=== PATIENT | male | born 1950 | race Caucasian/White ===

== ENCOUNTER 2020-04-02 21:27 | Inpatient (IN) | payer MEDICARE, OTHER ==
--- NOTE | 2020-04-02 21:45 | EDM.PDOC ---
ED HPI GENERAL MEDICAL PROBLEM - General Chief Complaint: General Stated Complaint: Hypernatremia Time Seen by Provider: 04/02/20 21:40 Source of Information: Reports: Patient, Old Records ([facility] chart/EMR), Other ([facility] EMR) History Limitations: Reports: Altered Mental Status - History of Present Illness INITIAL COMMENTS - FREE TEXT/NARRATIVE: The patient was brought to the emergency room via private automobile by his friend for evaluation of newly diagnosed progression of his hyponatremia. The patient was advised by [facility] to come to the emergency room [facility] for further treatment and evaluation. He is a somewhat poor historian secondary to his baseline confusion, however. The patient denies any chest pain/pressure, heart flutter, dizziness, orthostasis, orthopnea, diaphoresis, paresthesias, recent decreased exercise tolerance, or any other anginal-type symptoms. No recent history of abdominal pain, heartburn, nausea, diarrhea, melena, gross hematochezia, or any food intolerance, including fatty foods, etc.. He denies any gross hematuria, colic, or other UTI symptoms. The patient also denies any recent fever, cough, wheezing, dyspnea, etc.. No history of recent headaches, visual changes, diplopia, or other change in neurological status, although he has had problems with balance during the last few months, including mild progression of his confusion during the last few weeks with recent MRI of the brain as below. His last minor fall was a couple of days ago with no head injury, etc. at that time. He denies any pain or discomfort. Onset: Gradual, Other (As above) Severity: Moderate (Confusion and problems with balance) Improves with: Reports: None Worsens with: Reports: None Context: Reports: Other (As above). Denies: Sick Contact, Trauma Associated Symptoms: Reports: Confusion. Denies: Chest Pain, Cough, Diaphoresis, Fever/Chills, Headaches, Loss of Appetite, Malaise, Nausea/Vomiting, Rash, Shortness of Breath, Syncope, Weakness Treatments PIN WORKER: Reports: Other (see below) (None) - Related Data Allergies Allergy/AdvReac Type Severity Reaction Status Date / Time No Known Allergies Allergy Verified 06/29/18 09:17 Home Meds: Home Meds Lisinopril 40 mg PO DAILY 11/15/13 [History] amLODIPine [Norvasc] 5 mg PO DAILY 11/15/13 [History] Gabapentin [Neurontin] 600 mg PO BID@06/28/18 [History] Oxybutynin Chloride 5 mg PO DAILY 06/28/18 [History] hydroCHLOROthiazide [Hydrochlorothiazide] 12.5 mg PO DAILY 06/28/18 [History] metFORMIN HCl [Metformin HCl] 1,000 mg PO BID 06/28/18 [History] Cholecalciferol (Vitamin D3) [Vitamin D3] 2,000 unit PO DAILY 03/03/20 [History] Diclofenac Sodium 50 mg PO BID@03/03/20 [History] Dulaglutide [Trulicity] 1.5 mg PO Q7D 03/03/20 [History] Memantine [Namenda] 10 mg PO BID 03/03/20 [History] Non-Formulary Medication [NF Drug] 75 unit SUBCUT BEDTIME 03/03/20 [History] Acetaminophen 500 mg PO Q6HR PRN 04/02/20 [History] Aspirin 81 mg PO DAILY 04/02/20 [History] Fenofibrate,Micronized [Fenofibrate] 134 mg PO DAILY 04/02/20 [History] Antkvghz-Xaxabud-Anpa 149-Hyal [Glucosamine-Chondr Complex Tab] 1 each PO DAILY 04/02/20 [History] Insulin Regular, Human [NovoLIN R] 30 units SUBCUT WITHDINNER 04/02/20 [History] Insulin Regular, Human [NovoLIN R] 35 units SUBCUT ACBREAKFAST 04/02/20 [History] Meclizine [Antivert] 12.5 mg PO BID PRN 04/02/20 [History] Multivitamin [Multivitamins] 1 each PO DAILY 04/02/20 [History] Iron-3 Fatty Acids [Iron-3] 100 mg PO DAILY 04/02/20 [History] Omeprazole 40 mg PO DAILY 04/02/20 [History] Sennosides/Docusate Sodium [Senna-S] 1 each PO DAILY 04/02/20 [History] Turmeric Root Extract [Turmeric Curcumin] 500 mg PO DAILY 04/02/20 [History] Vitamin B Complex 1 each PO DAILY 04/02/20 [History] Zinc 50 mg PO DAILY 04/02/20 [History] Past Medical History HEENT History: Reports: Allergic Rhinitis, Hard of Hearing, Impaired Vision, Other (See Below). Denies: Cataract, Glaucoma, Macular Degeneration, Otitis Media, Retinal Detachment Other HEENT History: Bilateral presbycusis with current hearing aid therapy. Patient wears reading glasses. Cardiovascular History: Reports: High Cholesterol, Hypertension, Other (See Below). Denies: Afib, Aneurysm, Arrhythmia, Blood Clots/VTE/DVT, CAD, Cardiomyopathy, Heart Failure, Heart Murmur, SD, PVD, Syncope Other Cardiovascular History: Dyslipidemia. Respiratory History: Reports: Bronchitis, Recurrent, COPD, Intubation, Previous, Sleep Apnea, Other (See Below). Denies: Asthma, Intubation, Difficult, PE, Pneumonia, Recurrent, Pneumothorax, TB Other Respiratory History: Patient has been compliant with his CPAP. Gastrointestinal History: Reports: Colon Polyp, GERD. Denies: Celiac Disease, Cholelithiasis, Fecal Incontinence, GI Bleed, Hepatitis, Hiatal Hernia, Irritable Bowel Syndrome, Jaundice, Pancreatitis, PUD Genitourinary History: Reports: BPH, Chronic Renal Insuffiency, Diabetic Nephropathy, Prostate Disorder. Denies: Acute Renal Failure, Renal Calculus, STD, Urinary Incontinence, UTI, Recurrent Musculoskeletal History: Reports: Arthritis, Back Pain, Chronic, Gout, Neck Pain, Chronic, Osteoarthritis. Denies: Amputation, Fracture, RA, SLE Neurological History: Reports: Alzheimers Disease, Neuropathy, Diabetic, Neuropathy, Peripheral, Vertigo, Other (See Below). Denies: Cerebral Aneurysms, Concussion, CVA, Headaches, Chronic, Head Trauma, Migraines, MS, Parkinson's, Seizure, TIA Other Neuro History: Recurrent falls. Mild to moderate cerebral atrophy by MRI. 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 Psychiatric History: Reports: Dementia. Denies: Abuse, Victim of, ADD, ADHD, Addiction, Anxiety, Depression, Psych Hospitalization(s), PTSD, Suicide Attempt, Suicidal Ideation Endocrine/Metabolic History: Reports: Diabetes, Type II, Obesity/BMI 30+, Other (See Below). Denies: Diabetes, Type I, Diabetes Mellitus, Type 3c, Hypothyroidism, IDDM Other Endocrine/Metabolic History: Chronic hyponatremia. Hematologic History: Reports: None. Denies: Anemia, Blood Transfusion(s), Iron Deficiency Immunologic History: Reports: None. Denies: AIDS, HIV, SLE Oncologic (Cancer) History: Reports: None. Denies: Basal Cell Carcinoma, Bladder, Colon, Hodgkin's Lymphoma, Leukemia, Lymphoma, Malignant Melanoma, Non- Hodgkin's Lymphoma, Prostate, Squamous Cell Carcinoma Dermatologic History: Reports: None. Denies: Eczema, Psoriasis - Infectious Disease History Infectious Disease History: Reports: Chicken Pox, Measles, Mumps. Denies: C- Difficile, Meningitis, Mononucleosis, MRSA, Pertussis (Whooping Cough), Rhe umatic Fever, Rubella, Scarlet Fever, Shingles, TB, VRE - Past Surgical History Head Surgeries/Procedures: Reports: None HEENT Surgical History: Reports: None. Denies: Adenoidectomy, Cataract Surgery, Eye Surgery, Laser Surgery, LASIK, Myringotomy w Tube(s), Naso-Sinus Surgery, Oral Surgery, Tonsillectomy Cardiovascular Surgical History: Reports: None. Denies: Varicose Respiratory Surgical History: Denies: None, Thoracentesis GI Surgical History: Reports: Appendectomy, Colonoscopy, Polypectomy, Other (See Below). Denies: Cholecystectomy, EGD, Hernia, Abdominal, Hernia, Inguinal, Hernia Repair/Other Other GI Surgeries/Procedures: Appendectomy at age 1. Last colonoscopy on 06/29/2018 was normal with polypectomy at time of colonoscopy on 11/29/2014. Male Surgical History: Reports: Circumcision, Other (See Below). Denies: TURP-Transurethral Resection of Prostate, Vasectomy Other Male Surgeries/Procedures: Circumcision as an infant. Neurological Surgical History: Reports: None. Denies: C-Spine, Discectomy, Laminectomy, Lumbar Spine, Sacral Spine, Spinal Fusion, Thoracic Spine, Vertebroplasty Musculoskeletal Surgical History: Reports: None, Hip Replacement, Joint Replacement, Other (See Below). Denies: Arthroscopic Procedure, Carpal Tunnel, Ganglion Cyst, ORIF, Shoulder Surgery Other Musculoskeletal Surgeries/Procedures:: Right knee total knee arthroplasty in about 2009 with redo procedure on 11/12/2013 complicated by postoperative bleed and subsequent infection with right knee I&D and drain placement on 12/11/2013. Left hip TEP on 05/11/2016. Oncologic Surgical History: Reports: None Dermatological Surgical History: Reports: None - Past Imaging History Past Imaging History: Reports: MRA (MRA of the brain on 03/03/2020 with results as above.), MRI (MRI of the brain on 03/10/2020 and 01/02/2019. MRI of the left hip on 12/01/2015 and the right hip on 01/13/2011.) Social & Family History - Family History HEENT: Reports: None. Denies: Glaucoma, Macular Degeneration, Retinal Detachment Cardiac: Reports: None. Denies: Afib, Aneurysm, Arrhythmia, Blood Clots/VTE/DVT, CAD, High Cholesterol, Hypertension, SD, PVD/COD, Syncope Respiratory: Reports: COPD, Other (See Below). Denies: Asthma, PE, Sleep Apnea Other Respiratory Family Hisory: Father with fatal COPD at age 55 with history of tobacco use. GI: Reports: None. Denies: Celiac Disease, Cholelithiasis, Colon Polyps, GERD, Inflammatory Bowel Disease, Irritable Bowel Syndrome, PUD : Reports: None. Denies: Renal Calculus, Renal Disease/Insufficiency OBGYN: Reports: None. Denies: Endometriosis, Recurrent Spontaneous Musculoskeletal: Reports: None. Denies: Gout, Osteoarthritis, RA Neurological: Reports: None. Denies: Alzheimers Disease, CVA, Dementia, Migraines, Seizure, TIA Psychiatric: Reports: None. Denies: Abuse, Victim of, ADD, ADHD, Anxiety, Depression, Hallucinations, Psych Hospitalization(s), PTSD, Suicide Attempt Endocrine/Metabolic: Reports: None. Denies: Diabetes, Type I, Diabetes, type II, Hypothyroidism, IDDM Hematologic: Reports: None. Denies: Anemia, SLE Immunologic: Reports: None. Denies: AIDS, HIV, SLE Dermatologic: Reports: None. Denies: Eczema, Psoriasis Oncologic: Reports: None. Denies: Colon, Hodgkin's Lymphoma, Leukemia, Lymphoma, Non-Hodgkin's Lymphoma, Prostate, Skin - Tobacco Use Smoking Status *Q: Never Smoker Tobacco Use Within Last Twelve Months: No Used Tobacco, but Quit: No Smoking Cessation Information Provided To Patient: No Second Hand Smoke Exposure: No Second Hand Smoke Education Provided: No - Caffeine Use Caffeine Use: Reports: Coffee (6 cups/day), Soda (Seldom). Denies: Energy Drinks, Tea - Alcohol Use Alcohol Use History: Yes Days Per Week of Alcohol Use: 2 Number of Drinks Per Day: 2 Number of Drinks Per Day Comment: Usually beer. No previous DWIs, problems with alcohol abuse, etc. Total Drinks Per Week: 4 Alcohol Use in Last Twelve Months: Yes - Recreational Drug Use Recreational Drug Use: No Drug Use in Last 12 Months: No Recreational Drug Type: Denies: Amphetamines (Speed), Cocaine, Heroin, Inhalants (Glues, Solvents, Aerosols), LSD (Acid), Marijuana/Hashish, Methamphetamine, Morphine, Oxycodone - Living Situation & Occupation Living situation: Reports: (2014. 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 ED EXAM, GENERAL - Physical Exam Exam: See Below Exam Limited By: No Limitations General Appearance: Alert, WD/WN, No Apparent Distress Eye Exam: Bilateral Eye: EOMI, Normal Inspection (No nystagmus), PERRL Ears: Normal External Exam, Hearing Loss (Moderate bilateral hearing loss with bilateral hearing aid therapy) Nose: Normal Inspection, Normal Mucosa, No Blood Throat/Mouth: Normal Inspection, Normal Lips, Normal Teeth, Normal Gums, Normal Oropharynx, Normal Voice, No Airway Compromise. No: Dysphagia, Perioral Cyanosis Head: Atraumatic, Normocephalic. No: Facial Swelling, Facial Tenderness, Sinus Tenderness Neck: Supple, Non-Tender, Full Range of Motion, Carotid Bruit (Mild bilateral carotid bruits). No: Lymphadenopathy (L), Lymphadenopathy (R), Thyromegaly Respiratory/Chest: No Respiratory Distress, Lungs Clear, Normal Breath Sounds, No Accessory Muscle Use, Chest Non-Tender, Other (Mild to moderate bilateral gynecomastia). No: Pleural Rub, Retractions Cardiovascular: Normal Peripheral Pulses, Regular Rate, Rhythm, No Edema, No Gallop, No JVD, No Murmur, No Rub. No: Gallop/S3, Gallop/S4, Friction Rub Peripheral Pulses: 2+: Radial (L), Radial (R), Dorsalis Pedis (L), Dorsalis Pedis (R) GI/Abdominal: Normal Bowel Sounds, Soft, Non-Tender, No Organomegaly, No Distention, No Abnormal Bruit, No Mass, Other (Obese). No: Guarding (Male) Exam: Deferred Rectal (Males) Exam: Deferred Back Exam: Normal Inspection, Full Range of Motion. No: CVA Tenderness (L), CVA Tenderness (R), Muscle Spasm Extremities: Normal Range of Motion, Non-Tender, No Pedal Edema, Normal Capillary Refill, Other (Multiple superficial abrasions over the anterior tibial regions bilaterally and also on the left patella with no local signs of infection). No: Evelin's Sign Neurological: Normal Reflexes (Negative Babinski's, finger to nose, and pronator rotation tests. No evidence of facial paresis, tongue deviation, orthostasis, etc.. Excellent reverse thought processes.), Confused (Mild) Psychiatric: Normal Affect, Normal Mood Skin Exam: Warm, Dry, Normal Color, Wound/Incision (As above). No: Diaphoretic, Ecchymosis Lymphatic: No Adenopathy EKG INTERPRETATION EKG Date: 04/02/20 Time: 22:17 Rhythm: NSR Rate (Beats/Min): 72 [place]: Normal (Left cardiac axis) P-Wave: Enlarged (Moderate diffuse biphasic P waves) QRS: Normal (0.09 seconds.) ST-T: Normal QT: Normal CA/PQ Interval: 0.21 seconds were present in a first-degree AV block with extreme poor R wave progression in the anterior leads Comparison: NA - No Prior EKG EKG Interpretation Comments: 1. No acute ischemic changes 2. First-degree AV block 3. Left atrial enlargement Course - Vital Signs Last Recorded V/S: Last Vital Signs Temp 36.7 C 04/02/20 21:30 Pulse 67 04/02/20 23:00 Resp 20 04/02/20 23:00 BP 127/60 04/02/20 23:00 Pulse Ox 97 04/02/20 23:00 Vital Signs - 24 hr 04/02/20 04/02/20 04/02/20 21:30 21:45 22:00 Temperature [ 36.7 C Temporal] Pulse, 72 76 73 Peripheral [ Pulse Oximetry] Respiratory 20 20 20 Rate Blood Pressure 126/56 L 126/56 L 121/55 L [Left Upper Arm ] O2 Sat by Pulse 100 96 96 Oximetry 04/02/20 04/02/20 22:15 22:30 Temperature [ Temporal] Pulse, 73 72 Peripheral [ Pulse Oximetry] Respiratory 15 20 Rate Blood Pressure 138/63 135/70 [Left Upper Arm ] O2 Sat by Pulse 98 97 Oximetry - Orders/Labs/Meds Orders: Active Orders 24 hr Category Date Time Status Cardiac Monitoring [RC] . DIRECTED Care 04/02/20 21:45 Active EKG Documentation Completion [RC] ASDIRECTED Care 04/02/20 21:45 Active Oxygen Therapy, ED [RC] PRN Care 04/02/20 21:45 Active Peripheral IV Care [RC] . DIRECTED Care 04/02/20 21:45 Active Pulse Oximetry [RC] CONTINUOUS Care 04/02/20 21:45 Active Up With Assistance [RC] PFP Care 04/02/20 21:45 Active Vital Signs [RC] PFP Care 04/02/20 21:45 Active Nothing per Oral Now Diet [DIET] Diet 04/02/20 Breakfast Active Chest 1V Frontal [CR] Stat Exams 04/02/20 21:45 Taken CULTURE URINE [RM] Routine Lab 04/02/20 21:45 Ordered URINALYSIS W/MICROSCOPIC [UA W/MICROSCOPIC] [URIN] Lab 04/02/20 22:20 Ordered Routine Sodium Chloride 0.9% [Saline Flush] Med 04/02/20 21:45 Active 10 ml FLUSH ASDIRECTED PRN Obtain Past Medical Record [OM.PC] Urgent Oth 04/02/20 21:45 Active Peripheral IV Insertion Adult [OM.PC] Stat Oth 04/02/20 21:45 Ordered Resuscitation Status Stat Resus Stat 04/02/20 21:45 Ordered EKG 12 Lead [EK] Stat Ther 04/02/20 21:45 Ordered Medication Orders Sodium Chloride (Saline Flush) 10 ml FLUSH ASDIRECTED PRN PRN Reason: Keep Vein Open Labs: Laboratory Tests 04/02/20 04/02/20 04/02/20 Range/Units 22:15 22:15 22:15 PT 10.4 (9.5-12.0) SEC INR 1.0 APTT 25.0 (24.5-32.8) SEC Lactic Acid 1.2 (0.4-2.0) mmol/L Uric Acid 7.1 (2.6-7.2) mg/dL Magnesium 1.7 L (1.8-2.4) mg/dL Creatine Kinase 521 H (26-308) U/L Creatine Kinase Index 1.2 (0.0-2.5) % CK-MB (CK-2) 6.20 H* (0.00-3.60) ng/mL Troponin I 0.028 (0.000-0.056) ng/mL NT-Pro-B Natriuret Pep 317 H (0-125) pg/mL TSH, Ultra Sensitive 2.237 (0.358-3.740) mIU/mL Blood work at [facility] earlier today showed a sodium of 116, potassium 4.2, glucose 108, BUN 47, creatinine 2.56, protein 6.5, albumin 3.6, total bilirubin 1.2, AST 38, and ALT of 28. Glycosylated hemoglobin 11.1%. CBC was normal including WBCs of 8.2 hemoglobin of 13.1 and platelets of 229. Meds: Medications Generic Name Dose Route Start Last Admin Trade Name Freq PRN Reason Stop Dose Admin Sodium Chloride 10 ml 04/02/20 21:45 Saline Flush FLUSH ASDIRECTED PRN Keep Vein Open - Radiology Interpretation Free Text/Narrative:: court recording monitor shows normal sinus rhythm in the 60s and 70s with no ectopy or arrhythmia. Chest x-ray, portable, shows mild CHF and COPD with no pulmonary infiltrates. Questionable hypodense area in the right lower lobe of unknown etiology with no pneumothorax, cardiomegaly, etc. Departure - Departure Time of Disposition: 23:00 Disposition: Admitted As Inpatient 65 Condition: Fair Clinical Impression: Hyponatremia, Peptic reflux disease, IDDM (insulin dependent diabetes mellitus), Confusion, Dyslipidemia, Renal insufficiency, Elevated LFTs, Hypomagnesemia, Elevated CK COPD (chronic obstructive pulmonary disease) Qualifiers: COPD type: emphysema Emphysema type: panlobular Qualified Code(s): J43.1 - Panlobular emphysema - Discharge Information *PRESCRIPTION DRUG MONITORING PROGRAM REVIEWED*: Not Applicable *COPY OF PRESCRIPTION DRUG MONITORING REPORT IN PATIENT MARLENE: Not Applicable Sepsis Event Note (ED) - Focused Exam Vital Signs: Vital Signs Temp Pulse Resp BP Pulse Ox 04/02/20 22:30 72 20 135/70 97 04/02/20 22:15 73 15 138/63 98 04/02/20 22:00 73 20 121/55 L 96 04/02/20 21:45 76 20 126/56 L 96 04/02/20 21:30 36.7 C 72 20 126/56 L 100 - Problem List & Annotations (1) Confusion SNOMED Code(s): 654783191 Code(s): R41.0 - DISORIENTATION, UNSPECIFIED Status: Acute Priority: High Current Visit: No Annotation/Comment:: Note history of baseline organic brain syndrome however 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 Patient has yet to see the neurosurgeon. Note progressive hyponatremia as above with [facility] calling his sister earlier this evening and advised her to have him come to the emergency room [facility]. Observe for now. Attempt to obtain UA with culture and sensitivity. Repeat blood work in the a.m., including prolactin level, etc. (2) Hyponatremia SNOMED Code(s): 82808993 Code(s): E87.1 - HYPO-OSMOLALITY AND HYPONATREMIA Status: Acute Priority: High Current Visit: No Annotation/Comment:: Significant progressive hyponatremia with initiation of 3% sodium chloride infusion after admission. Note additional new hypercalcemia with PTH also to be conducted. (3) Dyslipidemia SNOMED Code(s): 891342948 Code(s): E78.5 - HYPERLIPIDEMIA, UNSPECIFIED Status: Chronic Priority: Medium Current Visit: No Annotation/Comment:: Currently under therapy. Lipid panel in the a.m. (4) IDDM (insulin dependent diabetes mellitus) SNOMED Code(s): 18181792 Code(s): IIM7648 - Status: Chronic Priority: High Current Visit: No Annotation/Comment:: Poor control with glycosylated hemoglobin of 11.1% although random glucose of 108 at [facility] in [place] earlier today. Further adjustment of medical therapy during this hospitalization depending on his clinical course. Dietary noncompliance may be an issue. (5) COPD (chronic obstructive pulmonary disease) SNOMED Code(s): 32131780 Code(s): J44.9 - CHRONIC OBSTRUCTIVE PULMONARY DISEASE, UNSPECIFIED Status: Chronic Priority: Medium Current Visit: No Annotation/Comment:: No recent history of fever or bronchitic type symptoms. Note additional history of sleep apnea with patient not having his machine today Qualifiers: COPD type: emphysema Emphysema type: panlobular Qualified Code(s): J43.1 - Panlobular emphysema (6) Peptic reflux disease SNOMED Code(s): 849500756 Code(s): K21.9 - GASTRO-ESOPHAGEAL REFLUX DISEASE WITHOUT ESOPHAGITIS Status: Chronic Priority: Medium Current Visit: No Annotation/Comment:: Stable by history with no anemia during CBC at [facility] earlier today (7) Renal insufficiency SNOMED Code(s): 529056975, 348392056 Code(s): N28.9 - DISORDER OF KIDNEY AND URETER, UNSPECIFIED Status: Chronic Current Visit: No Annotation/Comment:: Diabetic nephropathy with creatinine of 2.56 earlier today (8) Elevated LFTs SNOMED Code(s): 627352386, 595231155 Code(s): R79.89 - OTHER SPECIFIED ABNORMAL FINDINGS OF BLOOD CHEMISTRY Status: Chronic Priority: Medium Current Visit: No Annotation/Comment:: Likely secondary to fatty liver with no abdominal complaints at this time. (9) Elevated CK SNOMED Code(s): 260157374 Code(s): R74.8 - ABNORMAL LEVELS OF OTHER SERUM ENZYMES Status: Acute Priority: High Current Visit: Yes Onset Date: 04/02/20 Annotation/Comment:: No chest pain or anginal complaints. Note normal cardiac index despite elevated CK-MB. No clinical evidence of rhabdomyolysis, however initiate aggressive IV hydration including initial 3% sodium chloride solution. Repeat cardiac enzymes and EKG in the a.m. (10) Hypomagnesemia SNOMED Code(s): 308807934 Code(s): E83.42 - HYPOMAGNESEMIA Status: Acute Priority: Medium Current Visit: Yes Onset Date: 04/02/20 Annotation/Comment:: Magnesium sulfate infusion after initial 3% sodium chloride infusion has been completed. - Problem List Review Problem List Initiated/Reviewed/Updated: Yes - My Orders Last 24 Hours: My Active Orders 04/02/20 Breakfast Nothing per Oral Now Diet [DIET] 04/02/20 21:45 Cardiac Monitoring [RC] . DIRECTED EKG Documentation Completion [RC] ASDIRECTED Oxygen Therapy, ED [RC] PRN Peripheral IV Care [RC] . DIRECTED Pulse Oximetry [RC] CONTINUOUS Up With Assistance [RC] PFP Vital Signs [RC] PFP Chest 1V Frontal [CR] Stat CULTURE URINE [RM] Routine Sodium Chloride 0.9% [Saline Flush] 10 ml FLUSH ASDIRECTED PRN Obtain Past Medical Record [OM.PC] Urgent Peripheral IV Insertion Adult [OM.PC] Stat Resuscitation Status Stat EKG 12 Lead [EK] Stat 04/02/20 22:20 URINALYSIS W/MICROSCOPIC [UA W/MICROSCOPIC] [URIN] Routine - Assessment/Plan Admission H&P: Please use this note as an admission H&P Last 24 Hours: My Active Orders 04/02/20 Breakfast Nothing per Oral Now Diet [DIET] 04/02/20 21:45 Cardiac Monitoring [RC] . DIRECTED EKG Documentation Completion [RC] ASDIRECTED Oxygen Therapy, ED [RC] PRN Peripheral IV Care [RC] . DIRECTED Pulse Oximetry [RC] CONTINUOUS Up With Assistance [RC] PFP Vital Signs [RC] PFP Chest 1V Frontal [CR] Stat CULTURE URINE [RM] Routine Sodium Chloride 0.9% [Saline Flush] 10 ml FLUSH ASDIRECTED PRN Obtain Past Medical Record [OM.PC] Urgent Peripheral IV Insertion Adult [OM.PC] Stat Resuscitation Status Stat EKG 12 Lead [EK] Stat 04/02/20 22:20 URINALYSIS W/MICROSCOPIC [UA W/MICROSCOPIC] [URIN] Routine Assessment:: As above Plan: As above. Extensive precautions were given to the patient, who is in agreement with the treatment plan. The patient will require about 3-4 days of inpatient/acute care secondary to multiple health problems as above.
[2020-04-02] MEDS ORDERED: Magnesium Sulfate/Water 4 GM in Premix Bag 1 BAG IV ONE (23:11)
[2020-04-02] MEDS ORDERED: Temazepam 15 MG Cap PO PRN (23:12)
[2020-04-02] MEDS ORDERED: Acetaminophen 325 MG Tab PO PRN (23:12)
[2020-04-02] MEDS ORDERED: Sodium Chloride 0.9% 10 ML Syringe FLUSH PRN (23:12)
[2020-04-02] MEDS ORDERED: Sodium Chloride 3% 500 ML IV SCH ×2 (23:15→23:45)
[2020-04-02] MEDS ORDERED: Sodium Chloride 0.9% 1,000 ML IV SCH (23:15)
[2020-04-03] MEDS ORDERED: Magnesium Sulfate/Water 100 ML ONE (07:16)
[2020-04-03] MEDS: Sodium Chloride 0.9% 10 ML Syringe FLUSH PRN ×2 (07:25→07:55)
[2020-04-03] MEDS ORDERED: metFORMIN 500 MG Tab PO SCH (07:30)
[2020-04-03] MEDS: Omeprazole 20 MG Cap.CR PO SCH (07:53)
[2020-04-03] MEDS: Gabapentin 300 MG Cap PO SCH ×2 (07:53→19:44)
[2020-04-03] MEDS: Aspirin 81 MG Tab.Chew PO SCH (07:54)
[2020-04-03] MEDS ORDERED: Hydrochlorothiazide 25 MG Tab PO SCH (08:00)
[2020-04-03] MEDS ORDERED: Lisinopril 20 MG Tab PO SCH (08:00)
[2020-04-03] MEDS ORDERED: Fenofibrate,Micronized 134 MG Cap PO SCH (08:00)
[2020-04-03] MEDS ORDERED: amLODIPine 5 MG Tab PO SCH ×2 (08:00→18:00)
[2020-04-03] MEDS: Insulin Regular, Human 100 Units/ML 3 ML Vial SUBCUT SCH (09:29)
[2020-04-03] MEDS: metFORMIN 500 MG Tab PO SCH ×2 (09:33→17:10)
--- NOTE | 2020-04-03 11:21 | PCM.PN ---
- General Info Date of Service: 04/03/20 Admission Dx/Problem (Free Text): 1. Hyponatremia 2. Confusion Subjective Update: The patient is a poor historian secondary to his persistent confusion. Functional Status: Reports: Pain Controlled, Tolerating Diet, Ambulating (With assist with fall precautions in place ), Urinating. Denies: New Symptoms, Incentive Spirometry Pain Score: 0 - Review of Systems General: Reports: Weakness (Mild nonspecific generalized). Denies: Fever, Fatigue, Malaise, Chills, Night Sweats, Appetite (Adequate) HEENT: Reports: No Symptoms Pulmonary: Reports: Shortness of Breath. Denies: Pleuritic Chest Pain, Cough, Sputum, Hemoptysis, Wheezing Cardiovascular: Reports: No Symptoms. Denies: Chest Pain, Edema Gastrointestinal: Reports: No Symptoms, Other (No bowel movement since admission). Denies: Nausea, Vomiting Genitourinary: Reports: Incontinence. Denies: Dysuria Musculoskeletal: Reports: No Symptoms Skin: Reports: No Symptoms. Denies: Diaphoresis, Bruising Neurological: Reports: Confusion, Pre-Existing Deficit, Weakness (As above), Gait Disturbance (Persistent problems with balance). Denies: Headache, Trouble Speaking, Change in Speech Psychiatric: Reports: Confusion. Denies: Agitation, Cravings, Hallucinations - Patient Data Vitals - Most Recent: Last Vital Signs Temp 36.2 C 04/03/20 07:39 Pulse 60 04/03/20 07:39 Resp 20 04/03/20 07:39 BP 106/66 04/03/20 07:39 Pulse Ox 97 04/03/20 07:39 Vital Signs - 24 hr 04/02/20 04/02/20 04/02/20 21:30 21:45 22:00 Temperature [ 36.7 C Temporal] Pulse, 72 76 73 Peripheral [ Pulse Oximetry] Respiratory 20 20 20 Rate Blood Pressure 126/56 L 126/56 L 121/55 L [Left Upper Arm ] Blood Pressure [Right Upper Arm] O2 Sat by Pulse 100 96 96 Oximetry 04/02/20 04/02/20 04/02/20 22:15 22:30 23:00 Temperature [ Temporal] Pulse, 73 72 67 Peripheral [ Pulse Oximetry] Respiratory 15 20 20 Rate Blood Pressure 138/63 135/70 127/60 [Left Upper Arm ] Blood Pressure [Right Upper Arm] O2 Sat by Pulse 98 97 97 Oximetry 04/03/20 04/03/20 04:00 07:39 Temperature [ 36.1 C 36.2 C Temporal] Pulse, 97 60 Peripheral [ Pulse Oximetry] Respiratory 18 20 Rate Blood Pressure 105/57 L [Left Upper Arm ] Blood Pressure 106/66 [Right Upper Arm] O2 Sat by Pulse 100 97 Oximetry Weight - Most Recent: 103.737 kg I&O - Last 24 Hours: Intake & Output 04/02/20 04/03/20 04/03/20 22:59 06:59 14:59 Output Total 1600 Balance -1600 Imaging Impressions - Last 24 Hours: vehicle monitor technician shows normal sinus rhythm in the 70s with no ectopy or arrhythmia Chest x-ray, portable, shows evidence of mild COPD with probable pulmonary hypertension and/or mild centralized CHF. Moderately elevated right hemidiaphragm with no pneumothorax or pulmonary infiltrates. No cardiomegaly with mildly prominent proximal aortic arch. Lab Results Last 24 Hours: Laboratory Results - last 24 hr 04/02/20 04/02/20 04/02/20 Range/Units 22:15 22:15 22:15 WBC (4.0-10.2) K/uL RBC (4.33-5.41) M/uL Hgb (13.1-16.8) g/dL Hct (39.0-49.0) % MCV (84.0-98.0) fL MCH (28.2-33.3) pg MCHC (31.7-36.0) g/dL RDW (11.2-14.1) % Plt Count (150-350) K/uL Neut % (Auto) (45.0-80.0) % Lymph % (Auto) (10.0-50.0) % [place] % (Auto) (2.0-14.0) % Eos % (Auto) (0.0-5.0) % Baso % (Auto) (0.0-2.0) % Neut # (Auto) (1.40-7.00) K/uL Lymph # (Auto) (0.50-3.50) K/uL [place] # (Auto) (0.00-1.00) K/uL Eos # (Auto) (0.00-0.50) K/uL Baso # (Auto) (0.00-0.20) K/uL PT 10.4 (9.5-12.0) SEC INR 1.0 APTT 25.0 (24.5-32.8) SEC Sodium (136-145) mmol/L Potassium (3.5-5.1) mmol/L Chloride (98-107) mmol/L Carbon Dioxide (21.0-32.0) mmol/L BUN (7-18) mg/dL Creatinine (0.51-1.17) mg/dL Est Cr Clr Drug Dosing mL/min Estimated GFR (MDRD) mL/min Glucose (74-106) mg/dL Lactic Acid 1.2 (0.4-2.0) mmol/L Uric Acid 7.1 (2.6-7.2) mg/dL Calcium (8.5-10.1) mg/dL Phosphorus (2.6-4.7) mg/dL Magnesium 1.7 L (1.8-2.4) mg/dL Total Bilirubin (0.2-1.0) mg/dL AST (15-37) U/L ALT (12-78) U/L Alkaline Phosphatase (46-116) IU/L Creatine Kinase 521 H (26-308) U/L Creatine Kinase Index 1.2 (0.0-2.5) % CK-MB (CK-2) 6.20 H* (0.00-3.60) ng/mL Troponin I 0.028 (0.000-0.056) ng/mL NT-Pro-B Natriuret Pep 317 H (0-125) pg/mL Total Protein (6.4-8.2) g/dL Albumin (3.4-5.0) g/dL Triglycerides (30-150) mg/dL Cholesterol (100-200) mg/dL LDL Cholesterol, Calc (0-100) mg/dL HDL Cholesterol (40-60) mg/dL Vitamin B12 (193-986) pg/mL TSH, Ultra Sensitive 2.237 (0.358-3.740) mIU/mL Specimen Type Urine Color Urine Appearance Urine pH (5.0-9.0) Ur Specific [place] (1.005-1.030) Urine Protein (NEGATIVE) mg/dL Urine Glucose (UA) (NEGATIVE) mg/dL Urine Ketones (NEGATIVE) mg/dL Urine Occult Blood (NEGATIVE) Urine Nitrite (NEGATIVE) Urine Bilirubin (NEGATIVE) Urine Urobilinogen (0.2-1.0) E.U./dL Ur Leukocyte Esterase (NEGATIVE) Urine RBC /HPF Urine WBC /HPF Ur Epithelial Cells /LPF Urine Bacteria (NONE TO FEW) /HPF 04/03/20 04/03/20 04/03/20 Range/Units 02:30 06:40 06:40 WBC 4.1 (4.0-10.2) K/uL RBC 4.17 L (4.33-5.41) M/uL Hgb 12.9 L (13.1-16.8) g/dL Hct 36.4 L (39.0-49.0) % MCV 87.3 (84.0-98.0) fL MCH 30.9 (28.2-33.3) pg MCHC 35.4 (31.7-36.0) g/dL RDW 12.5 (11.2-14.1) % Plt Count 196 (150-350) K/uL Neut % (Auto) 55.6 (45.0-80.0) % Lymph % (Auto) 26.9 (10.0-50.0) % [place] % (Auto) 14.6 H (2.0-14.0) % Eos % (Auto) 2.4 (0.0-5.0) % Baso % (Auto) 0.5 (0.0-2.0) % Neut # (Auto) 2.29 (1.40-7.00) K/uL Lymph # (Auto) 1.11 (0.50-3.50) K/uL [place] # (Auto) 0.60 (0.00-1.00) K/uL Eos # (Auto) 0.10 (0.00-0.50) K/uL Baso # (Auto) 0.02 (0.00-0.20) K/uL PT (9.5-12.0) SEC INR APTT (24.5-32.8) SEC Sodium 126 L (136-145) mmol/L Potassium 3.7 (3.5-5.1) mmol/L Chloride 90 L (98-107) mmol/L Carbon Dioxide 28.2 (21.0-32.0) mmol/L BUN 47 H (7-18) mg/dL Creatinine 2.05 H (0.51-1.17) mg/dL Est Cr Clr Drug Dosing 32.44 mL/min Estimated GFR (MDRD) 32 mL/min Glucose 187 H (74-106) mg/dL Lactic Acid (0.4-2.0) mmol/L Uric Acid (2.6-7.2) mg/dL Calcium 8.5 (8.5-10.1) mg/dL Phosphorus 3.7 (2.6-4.7) mg/dL Magnesium (1.8-2.4) mg/dL Total Bilirubin 1.0 (0.2-1.0) mg/dL AST 38 H (15-37) U/L ALT 33 (12-78) U/L Alkaline Phosphatase 49 (46-116) IU/L Creatine Kinase 283 (26-308) U/L Creatine Kinase Index 1.6 (0.0-2.5) % CK-MB (CK-2) 4.60 H* (0.00-3.60) ng/mL Troponin I 0.031 (0.000-0.056) ng/mL NT-Pro-B Natriuret Pep (0-125) pg/mL Total Protein 6.2 L (6.4-8.2) g/dL Albumin 3.1 L (3.4-5.0) g/dL Triglycerides 181 H (30-150) mg/dL Cholesterol 133 (100-200) mg/dL LDL Cholesterol, Calc 75 (0-100) mg/dL HDL Cholesterol 22 L (40-60) mg/dL Vitamin B12 560 (193-986) pg/mL TSH, Ultra Sensitive (0.358-3.740) mIU/mL Specimen Type Urincc Urine Color Yellow Urine Appearance Clear Urine pH 6.0 (5.0-9.0) Ur Specific [place] 1.010 (1.005-1.030) Urine Protein Negative (NEGATIVE) mg/dL Urine Glucose (UA) 250 H (NEGATIVE) mg/dL Urine Ketones Negative (NEGATIVE) mg/dL Urine Occult Blood Negative (NEGATIVE) Urine Nitrite Negative (NEGATIVE) Urine Bilirubin Negative (NEGATIVE) Urine Urobilinogen 0.2 (0.2-1.0) E.U./dL Ur Leukocyte Esterase Negative (NEGATIVE) Urine RBC 0-5 /HPF Urine WBC 0-5 /HPF Ur Epithelial Cells Not seen /LPF Urine Bacteria Not seen (NONE TO FEW) /HPF Laboratory Tests 04/02/20 04/02/20 04/02/20 Range/Units 22:15 22:15 22:15 WBC (4.0-10.2) K/uL RBC (4.33-5.41) M/uL Hgb (13.1-16.8) g/dL Hct (39.0-49.0) % MCV (84.0-98.0) fL MCH (28.2-33.3) pg MCHC (31.7-36.0) g/dL RDW (11.2-14.1) % Plt Count (150-350) K/uL Neut % (Auto) (45.0-80.0) % Lymph % (Auto) (10.0-50.0) % [place] % (Auto) (2.0-14.0) % Eos % (Auto) (0.0-5.0) % Baso % (Auto) (0.0-2.0) % Neut # (Auto) (1.40-7.00) K/uL Lymph # (Auto) (0.50-3.50) K/uL [place] # (Auto) (0.00-1.00) K/uL Eos # (Auto) (0.00-0.50) K/uL Baso # (Auto) (0.00-0.20) K/uL PT 10.4 (9.5-12.0) SEC INR 1.0 APTT 25.0 (24.5-32.8) SEC Sodium (136-145) mmol/L Potassium (3.5-5.1) mmol/L Chloride (98-107) mmol/L Carbon Dioxide (21.0-32.0) mmol/L BUN (7-18) mg/dL Creatinine (0.51-1.17) mg/dL Est Cr Clr Drug Dosing mL/min Estimated GFR (MDRD) mL/min Glucose (74-106) mg/dL Lactic Acid 1.2 (0.4-2.0) mmol/L Uric Acid 7.1 (2.6-7.2) mg/dL Calcium (8.5-10.1) mg/dL Phosphorus (2.6-4.7) mg/dL Magnesium 1.7 L (1.8-2.4) mg/dL Total Bilirubin (0.2-1.0) mg/dL AST (15-37) U/L ALT (12-78) U/L Alkaline Phosphatase (46-116) IU/L Creatine Kinase 521 H (26-308) U/L Creatine Kinase Index 1.2 (0.0-2.5) % CK-MB (CK-2) 6.20 H* (0.00-3.60) ng/mL Troponin I 0.028 (0.000-0.056) ng/mL NT-Pro-B Natriuret Pep 317 H (0-125) pg/mL Total Protein (6.4-8.2) g/dL Albumin (3.4-5.0) g/dL Triglycerides (30-150) mg/dL Cholesterol (100-200) mg/dL LDL Cholesterol, Calc (0-100) mg/dL HDL Cholesterol (40-60) mg/dL Vitamin B12 (193-986) pg/mL TSH, Ultra Sensitive 2.237 (0.358-3.740) mIU/mL Specimen Type Urine Color Urine Appearance Urine pH (5.0-9.0) Ur Specific [place] (1.005-1.030) Urine Protein (NEGATIVE) mg/dL Urine Glucose (UA) (NEGATIVE) mg/dL Urine Ketones (NEGATIVE) mg/dL Urine Occult Blood (NEGATIVE) Urine Nitrite (NEGATIVE) Urine Bilirubin (NEGATIVE) Urine Urobilinogen (0.2-1.0) E.U./dL Ur Leukocyte Esterase (NEGATIVE) Urine RBC /HPF Urine WBC /HPF Ur Epithelial Cells /LPF Urine Bacteria (NONE TO FEW) /HPF 04/03/20 04/03/20 04/03/20 Range/Units 02:30 06:40 06:40 WBC 4.1 (4.0-10.2) K/uL RBC 4.17 L (4.33-5.41) M/uL Hgb 12.9 L (13.1-16.8) g/dL Hct 36.4 L (39.0-49.0) % MCV 87.3 (84.0-98.0) fL MCH 30.9 (28.2-33.3) pg MCHC 35.4 (31.7-36.0) g/dL RDW 12.5 (11.2-14.1) % Plt Count 196 (150-350) K/uL Neut % (Auto) 55.6 (45.0-80.0) % Lymph % (Auto) 26.9 (10.0-50.0) % [place] % (Auto) 14.6 H (2.0-14.0) % Eos % (Auto) 2.4 (0.0-5.0) % Baso % (Auto) 0.5 (0.0-2.0) % Neut # (Auto) 2.29 (1.40-7.00) K/uL Lymph # (Auto) 1.11 (0.50-3.50) K/uL [place] # (Auto) 0.60 (0.00-1.00) K/uL Eos # (Auto) 0.10 (0.00-0.50) K/uL Baso # (Auto) 0.02 (0.00-0.20) K/uL PT (9.5-12.0) SEC INR APTT (24.5-32.8) SEC Sodium 126 L (136-145) mmol/L Potassium 3.7 (3.5-5.1) mmol/L Chloride 90 L (98-107) mmol/L Carbon Dioxide 28.2 (21.0-32.0) mmol/L BUN 47 H (7-18) mg/dL Creatinine 2.05 H (0.51-1.17) mg/dL Est Cr Clr Drug Dosing 32.44 mL/min Estimated GFR (MDRD) 32 mL/min Glucose 187 H (74-106) mg/dL Lactic Acid (0.4-2.0) mmol/L Uric Acid (2.6-7.2) mg/dL Calcium 8.5 (8.5-10.1) mg/dL Phosphorus 3.7 (2.6-4.7) mg/dL Magnesium (1.8-2.4) mg/dL Total Bilirubin 1.0 (0.2-1.0) mg/dL AST 38 H (15-37) U/L ALT 33 (12-78) U/L Alkaline Phosphatase 49 (46-116) IU/L Creatine Kinase 283 (26-308) U/L Creatine Kinase Index 1.6 (0.0-2.5) % CK-MB (CK-2) 4.60 H* (0.00-3.60) ng/mL Troponin I 0.031 (0.000-0.056) ng/mL NT-Pro-B Natriuret Pep (0-125) pg/mL Total Protein 6.2 L (6.4-8.2) g/dL Albumin 3.1 L (3.4-5.0) g/dL Triglycerides 181 H (30-150) mg/dL Cholesterol 133 (100-200) mg/dL LDL Cholesterol, Calc 75 (0-100) mg/dL HDL Cholesterol 22 L (40-60) mg/dL Vitamin B12 560 (193-986) pg/mL TSH, Ultra Sensitive (0.358-3.740) mIU/mL Specimen Type Urincc Urine Color Yellow Urine Appearance Clear Urine pH 6.0 (5.0-9.0) Ur Specific [place] 1.010 (1.005-1.030) Urine Protein Negative (NEGATIVE) mg/dL Urine Glucose (UA) 250 H (NEGATIVE) mg/dL Urine Ketones Negative (NEGATIVE) mg/dL Urine Occult Blood Negative (NEGATIVE) Urine Nitrite Negative (NEGATIVE) Urine Bilirubin Negative (NEGATIVE) Urine Urobilinogen 0.2 (0.2-1.0) E.U./dL Ur Leukocyte Esterase Negative (NEGATIVE) Urine RBC 0-5 /HPF Urine WBC 0-5 /HPF Ur Epithelial Cells Not seen /LPF Urine Bacteria Not seen (NONE TO FEW) /HPF Urine specimen sent for culture and sensitivity Kristopher Results Last 24 Hours: Urine culture and sensitivity is pending. Med Orders - Current: Current Medications Acetaminophen (Tylenol) 650 mg PO Q4H PRN PRN Reason: Pain Amlodipine Besylate (Norvasc) 5 mg PO QPM [facility] Aspirin (Aspirin) 81 mg PO DAILY [facility] Last Admin: 04/03/20 07:54 Dose: 81 mg Documented by: Fenofibrate (Fenofibrate) 134 mg PO DAILY [facility] Last Admin: 04/03/20 07:53 Dose: 134 mg Documented by: Gabapentin (Neurontin) 600 mg PO BID@ [facility] Last Admin: 04/03/20 07:53 Dose: 600 mg Documented by: Sodium Chloride (Normal Saline) 1,000 mls @ 100 mls/hr IV ASDIRECTED [facility] Last Admin: 04/03/20 07:55 Dose: 100 mls/hr Documented by: Insulin Glargine (Lantus) 75 unit SUBCUT BEDTIME [facility] Insulin Human Regular (Humulin R) 30 unit SUBCUT DAILY@1700 [facility] Insulin Human Regular (Humulin R) 35 unit SUBCUT ACBREAKFAST [facility] Last Admin: 04/03/20 09:29 Dose: 35 units Documented by: Lisinopril (Prinivil) 20 mg PO DAILY [facility] Metformin HCl (Glucophage) 500 mg PO BIDMEALS [facility] Last Admin: 04/03/20 09:33 Dose: 500 mg Documented by: Dulaglutide [ (Trulicity] 1.5mg) 1.5 mg PO Q7D [facility] Omeprazole (Omeprazole) 40 mg PO DAILY [facility] Last Admin: 04/03/20 07:53 Dose: 40 mg Documented by: Senna/Docusate Sodium (Senna Plus) 1 tab PO DAILY [facility] Last Admin: 04/03/20 07:53 Dose: 1 tab Documented by: Sodium Chloride (Saline Flush) 10 ml FLUSH ASDIRECTED PRN PRN Reason: Keep Vein Open Last Admin: 04/03/20 07:55 Dose: 10 ml Documented by: Sodium Chloride (Saline Flush) 10 ml FLUSH Q12HR PRN PRN Reason: Keep Vein Open Temazepam (Restoril) 15 mg PO BEDTIME PRN PRN Reason: Insomnia Discontinued Medications Amlodipine Besylate (Norvasc) 5 mg PO DAILY [facility] Hydrochlorothiazide (Hydrochlorothiazide) 12.5 mg PO DAILY [facility] Last Admin: 04/03/20 07:53 Dose: 12.5 mg Documented by: Magnesium Sulfate 4 gm/ Premix 100 mls @ 200 mls/hr IV ONETIME ONE Stop: 04/02/20 23:40 Last Admin: 04/03/20 07:24 Dose: 200 mls/hr Documented by: Sodium Chloride (Sodium Chloride 3%) 500 mls @ 75 mls/hr IV ASDIRECTED [facility] Stop: 04/03/20 06:24 Last Admin: 04/03/20 00:31 Dose: 75 mls/hr Documented by: Magnesium Sulfate (Magnesium Sulfate In Water Premix) Confirm Administered Dose 100 mls @ as directed .ROUTE .STK-MED ONE Stop: 04/03/20 07:17 Last Admin: 04/03/20 07:28 Dose: Not Given Documented by: Lisinopril (Prinivil) 40 mg PO DAILY [facility] Metformin HCl (Glucophage) 1,000 mg PO BIDMEALS [place] - Exam Quality Assessment: DVT Prophylaxis. No: Supplemental Oxygen, Central Line/PICC, Urine Catheter, Skin Breakdown, Restraints General: Alert, Cooperative, No Acute Distress. No: Oriented (Persistent moderate confusion with disorientation x3), Lethargic HEENT: Pupils Equal, Pupils Reactive, EOMI, Mucous Membr. Moist/[place], Other (No nystagmus). No: Scleral Icterus Neck: Supple, Trachea Midline, No JVD, Carotid Bruit (Mild bilateral carotid bruits). No: No Thyromegaly, Lymphadenopathy Lungs: Normal Respiratory Effort, Rales (Mild bilateral basilar rales). No: Rhonchi, Rub, Wheezing Cardiovascular: Regular Rate, Regular Rhythm, No Murmurs. No: Gallops, Rubs GI/Abdominal Exam: Normal Bowel Sounds, Soft, Non-Tender, No Organomegaly, No Distention, No Abnormal Bruit, No Mass, Other (Obese). No: Guarding (Male) Exam: Deferred Back Exam: Normal Inspection, Full Range of Motion. No: CVA Tenderness (L), CVA Tenderness (R), Muscle Spasm Extremities: Normal Range of Motion, Non-Tender, No Pedal Edema, Other (Stable multiple superficial abrasions in the anterior tibial region and left patella region with no local signs of infection). No: Normal Capillary Refill, Evelin's Sign, Increased Warmth, Redness Peripheral Pulses: 2+: Radial (L), Radial (R), Dorsalis Pedis (L), Dorsalis Pedis (R) Skin: Other (As above) Wound/Incisions: Healing Well Neurological: No New Focal Deficit, Other (Confusion as above. Negative Rea nski's, finger to nose, and pronator rotation tests. No evidence of facial paresis, tongue deviation, orthostasis, etc.. ) Psy/Mental Status: Alert, Normal Affect, Normal Mood. No: Agitated, Hallucinations, Withdrawal Symptoms EKG INTERPRETATION EKG Date: 04/03/20 Time: 07:48 Rhythm: NSR Rate (Beats/Min): 63 [place]: Normal (Left cardiac access) P-Wave: Present (Mild diffuse biphasic T waves with extreme poor R wave progression in the anterior leads) QRS: Normal (0.09 seconds) ST-T: Normal QT: Normal WI/PQ Interval: 0.23 seconds representing a mildly progressive first-degree AV block Comparison: Change From Previous EKG (As above since 04/02/2020.) EKG Interpretation Comments: 1. No acute ischemic changes 2. First-degree AV block 3. Left atrial enlargement Sepsis Event Note - Evaluation Sepsis Screening Result: No Definite Risk - Focused Exam Vital Signs: Vital Signs Temp Pulse Resp BP BP Pulse Ox 04/03/20 07:39 36.2 C 60 20 106/66 97 04/03/20 04:00 36.1 C 97 18 105/57 L 100 - Problem List & Annotations (1) Confusion SNOMED Code(s): 305264656 Code(s): R41.0 - DISORIENTATION, UNSPECIFIED Status: Acute Priority: High Current Visit: No Annotation/Comment:: Persistent moderate to severe confusion despite improvement of his hyponatremia. 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 Patient has yet to see the neurosurgeon, although this should be arranged at time of patient's discharge. Telephone consultation at 11 AM with the patient's sister, Anderson, discussing patient's current status, blood work, plan of care, etc. with both the patient and his sister are comfortable in continuing care in this facility. Note progressive hyponatremia as per emergency room note with [facility] calling his sister and advising her to have him come to the emergency room [facility]. UA showed no evidence of infection with culture and sensitivity pending. Hydrochlorothiazide will be discontinued secondary to known significant complication of hyponatremia. This medication was apparently decreased to 12.5 mg yesterday by his regular provider, although this changes not been initiated to this point by his sister's history. Secondary to his hyponatremia this medication should not be reinitiated, however. Multiple medication adjustments on 04/03 including holding his a.m. Norvasc and changing this to a every afternoon regimen and decrease of his metformin and lisinopril secondary to his renal function. Repeat blood work, EKG, and chest x-ray in the a.m.. Vitamin B12 level was normal on 04/03 with prolactin level drawn and still pending. Continue slow adjustments of patient's sodium level with further consultation, patient transfer, etc. depending on his clinical course and response of his confusion to his improved hyponatremia. [facility] physician assumes care in the a.m. (2) Hyponatremia SNOMED Code(s): 20972138 Code(s): E87.1 - HYPO-OSMOLALITY AND HYPONATREMIA Status: Acute Priority: High Current Visit: Yes Annotation/Comment:: Significant improvement of patient's previous progressive hyponatremia with sodium of 126 on 04/03 from baseline of 116 prior to admission. No complications from slow 3% sodium chloride infusion after admission with patient changed to normal saline in the a.m. of 04/03. Note additional new hypercalcemia with PTH also drawn on 04/03 with results pending. (3) Dyslipidemia SNOMED Code(s): 393544015 Code(s): E78.5 - HYPERLIPIDEMIA, UNSPECIFIED Status: Chronic Priority: Medium Current Visit: Yes Annotation/Comment:: Currently under therapy. Lipid panel on 04/03 showed persistent dyslipidemia. Secondary to his persistent CK elevation his gemfibrozil will be held for the time being. No evidence of significant rhabdomyolysis, etc. with continued IV hydration with caution as above secondary to his mild BNP elevation with no clinical evidence of significant CHF both by clinical exam and today's x-ray. (4) IDDM (insulin dependent diabetes mellitus) SNOMED Code(s): 33685556 Code(s): NYQ5153 - Status: Chronic Priority: High Current Visit: No Annotation/Comment:: Poor control with glycosylated hemoglobin of 11.1% although random glucose of 108 at [facility] on 04/02/2020. Further adjustment of medical therapy during this hospitalization depending on his clinical course. Dietary noncompliance may be an issue. Observe for now. (5) COPD (chronic obstructive pulmonary disease) SNOMED Code(s): 01056780 Code(s): J44.9 - CHRONIC OBSTRUCTIVE PULMONARY DISEASE, UNSPECIFIED Status: Chronic Priority: Medium Current Visit: Yes Qualifiers: COPD type: emphysema Emphysema type: panlobular Qualified Code(s): J43.1 - Panlobular emphysema Annotation/Comment:: No recent history of fever or bronchitic type symptoms. Note additional history of sleep apnea with patient not having his machine today (6) Peptic reflux disease SNOMED Code(s): 400557670 Code(s): K21.9 - GASTRO-ESOPHAGEAL REFLUX DISEASE WITHOUT ESOPHAGITIS Status: Chronic Priority: Medium Current Visit: Yes Annotation/Comment:: Stable by history with no anemia during CBC at [facility] prior to admission, however some mild anemia today. Vitamin B12 level was normal as above. Further work-up depending on his clinical course. (7) Renal insufficiency SNOMED Code(s): 038728709, 703290351 Code(s): N28.9 - DISORDER OF KIDNEY AND URETER, UNSPECIFIED Status: Chronic Priority: Medium Current Visit: Yes Annotation/Comment:: Diabetic nephropathy with creatinine of 2.56 at [facility] on 04/02 prior to admission with improved creatinine of 2.05 on 04/03. Continue to observe closely. (8) Elevated LFTs SNOMED Code(s): 156683191, 889514281 Code(s): R79.89 - OTHER SPECIFIED ABNORMAL FINDINGS OF BLOOD CHEMISTRY Status: Chronic Priority: Medium Current Visit: Yes Annotation/Comment:: Likely secondary to fatty liver with no abdominal complaints at this time. Note significant dyslipidemia as above. (9) Elevated CK SNOMED Code(s): 228621959 Code(s): R74.8 - ABNORMAL LEVELS OF OTHER SERUM ENZYMES Status: Acute Priority: High Current Visit: Yes Onset Date: 04/02/20 Annotation/Comment:: No chest pain or anginal complaints. Note normal cardiac index despite elevated CK-MB with improved CK and CK-MB since admission. No clinical evidence of rhabdomyolysis, however initiate aggressive IV hydration including initial 3% sodium chloride solution as above. Negative work-up for acute [place] to this point. (10) Hypomagnesemia SNOMED Code(s): 049907400 Code(s): E83.42 - HYPOMAGNESEMIA Status: Acute Priority: Medium Current Visit: Yes Onset Date: 04/02/20 Annotation/Comment:: Magnesium sulfate infusion of 4 g completed in the early a.m. on 04/03. Continued close observation during this hospitalization with further supplementation depending on his clinical course. (11) First degree AV block SNOMED Code(s): 943803393 Code(s): I44.0 - ATRIOVENTRICULAR BLOCK, FIRST DEGREE Status: Acute Priority: Medium Current Visit: Yes Onset Date: 04/02/20 Annotation/Comment:: Mild progression on 04/03. Observe for now. - Problem List Review Problem List Initiated/Reviewed/Updated: Yes - My Orders Last 24 Hours: My Active Orders 04/02/20 21:45 Cardiac Monitoring [RC] Q2HR EKG Documentation Completion [RC] ASDIRECTED Peripheral IV Care [RC] Chest 1V Frontal [CR] Stat CULTURE URINE [RM] Routine Sodium Chloride 0.9% [Saline Flush] 10 ml FLUSH ASDIRECTED PRN Peripheral IV Insertion Adult [OM.PC] Stat Resuscitation Status Stat EKG 12 Lead [EK] Stat 04/02/20 23:12 Acetaminophen [TylenoL] 650 mg PO Q4H PRN Sodium Chloride 0.9% [Saline Flush] 10 ml FLUSH Q12HR PRN Temazepam [Restoril] 15 mg PO BEDTIME PRN 04/02/20 23:13 Communication Order [RC] DAILY Height and Weight [RC] DAILY Intake and Output Strict [RC] 18 Oxygen Therapy [RC] .PRN Pulse Oximetry [RC] .PRN Up With Assistance [RC] DAILY Vital Signs [RC] Q4HR Antiembolic Hose [OM.PC] Routine DVT/VTE Prophylaxis Reflex [OM.PC] Routine GM Immunization Reflex [OM.PC] Click to Edit 04/02/20 23:14 Antiembolic Devices [RC] .Routine Antiembolic Devices [RC] VTE/DVT Education [RC] DAILY 04/02/20 23:15 Sodium Chloride 0.9% [Normal Saline] 1,000 ml IV ASDIRECTED 04/02/20 23:17 Communication Order [RC] DAILY Communication Order [RC] Q4HR 04/03/20 05:11 EKG Documentation Completion [RC] ASDIRECTED 04/03/20 06:40 PROLACTIN [REF] Routine 04/03/20 07:15 PTH, INTACT [REF] Routine 04/03/20 Breakfast Heart Healthy Diet [DIET] Insulin Regular, Human [HumuLIN R] 35 unit SUBCUT ACBREAKFAST 04/03/20 08:00 Aspirin 81 mg PO DAILY Docusate Sodium/Sennosides [Senna Plus] 1 tab PO DAILY Fenofibrate,Micronized [Fenofibrate] 134 mg PO DAILY Gabapentin [Neurontin] 600 mg PO BID@ Omeprazole 40 mg PO DAILY 04/03/20 08:52 Communication Order [RC] ROUTINE 04/03/20 09:00 metFORMIN [Glucophage] 500 mg PO BIDMEALS 04/03/20 17:00 Insulin Regular, Human [HumuLIN R] 30 unit SUBCUT DAILY@1700 04/03/20 18:00 amLODIPine [Norvasc] 5 mg PO QPM 04/03/20 20:00 Insulin Glarg,Human.Rec.Analog [LantUS] 75 unit SUBCUT BEDTIME 04/04/20 08:00 lisinopriL [Prinivil] 20 mg PO DAILY 04/07/20 08:00 Dulaglutide [Trulicity] 1.5 mg PO Q7D - Assessment Assessment:: As above - Plan Plan:: As above. Extensive precautions were given to the patient and his sister during the above telephone consultation, who are in agreement with the treatment plan. The patient will require about 2-3 days of inpatient/acute care secondary to multiple health problems as above.
[2020-04-03] MEDS ORDERED: Insulin Regular, Human 100 Units/ML 3 ML Vial SUBCUT SCH (17:00)
[2020-04-03] MEDS: Sodium Chloride 0.9% 1,000 ML IV SCH (19:06)
[2020-04-03] MEDS ORDERED: Insulin Glarg,Human.Rec.Analog 100 Unit/ML SUBCUT SCH (20:00)
[2020-04-04] MEDS: Insulin Regular, Human 100 Units/ML 3 ML Vial SUBCUT SCH (07:49)
[2020-04-04] MEDS: metFORMIN 500 MG Tab PO SCH (07:51)
[2020-04-04] MEDS: Aspirin 81 MG Tab.Chew PO SCH (07:51)
[2020-04-04] MEDS: Omeprazole 20 MG Cap.CR PO SCH (07:52)
[2020-04-04] MEDS: Gabapentin 300 MG Cap PO SCH (07:52)
[2020-04-04] MEDS ORDERED: Lisinopril 20 MG Tab PO SCH (08:00)
[2020-04-04] MEDS: Sodium Chloride 0.9% 1,000 ML IV SCH (08:34)
--- NOTE | 2020-04-04 16:09 | PCM.DCSUM1 ---
Discharge Summary - Hospital Course Brief History: Patient referred to ER for further evaluation and treatment of hyponatremia Diagnosis: Stroke: No - Discharge Data Discharge Date: 04/04/20 Discharge Disposition: Home, Self-Care 01 Condition: Good - Referral to Home Health Primary Care Physician: Jackeline Steele NP - Discharge Diagnosis/Problem(s) (1) Hyponatremia SNOMED Code(s): 89375679 ICD Code: E87.1 - HYPO-OSMOLALITY AND HYPONATREMIA Status: Acute Priority: High Current Visit: Yes Problem Details: Significant improvement of patient's previous progressive hyponatremia with current level noted to have normalized at 137. Note additional new hypercalcemia with PTH also drawn on 04/03 with results pending. Close follow up with PCP advised. Recheck Na level in 1 week. (2) Confusion SNOMED Code(s): 418722126 ICD Code: R41.0 - DISORIENTATION, UNSPECIFIED Status: Acute Priority: High Current Visit: No Problem Details: Confusion cleared today. Alert/oriented. Family notes patient does have history of intermittent confusion noted in past. Is looking into different living situation for him. 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 Patient has yet to see the neurosurgeon. UA showed no evidence of infection. Hydrochlorothiazide will be discontinued secondary to known significant complication of hyponatremia. This medication was apparently decreased to 12.5 mg yesterday by his regular provider, although this changes not been initiated to this point by his sister's history. Secondary to his hyponatremia this medication should not be reinitiated, however. Multiple medication adjustments on 04/03 including holding his a.m. Norvasc and changing this to a every afternoon regimen and decrease of his metformin and lisinopril secondary to his renal function. Vitamin B12 level was normal on 04/03 with prolactin level drawn and still pending. (3) Elevated CK SNOMED Code(s): 530654168 ICD Code: R74.8 - ABNORMAL LEVELS OF OTHER SERUM ENZYMES Status: Acute Priority: High Current Visit: Yes Onset Date: 04/02/20 Problem Details: No chest pain or anginal complaints. Note normal cardiac index despite elevated CK-MB with improved CK and CK-MB since admission. No clinical evidence of rhabdomyolysis. Negative work-up for acute [place]. (4) First degree AV block SNOMED Code(s): 687881216 ICD Code: I44.0 - ATRIOVENTRICULAR BLOCK, FIRST DEGREE Status: Acute Priority: Medium Current Visit: Yes Onset Date: 04/02/20 Problem Details: Mild progression on 04/03. Observe. (5) Hypomagnesemia SNOMED Code(s): 359735798 ICD Code: E83.42 - HYPOMAGNESEMIA Status: Acute Priority: Medium Current Visit: Yes Onset Date: 04/02/20 Problem Details: Magnesium sulfate infusion of 4 g completed in the early a.m. on 04/03. Continue oral supplementation after discharge (6) COPD (chronic obstructive pulmonary disease) SNOMED Code(s): 72407483 ICD Code: J44.9 - CHRONIC OBSTRUCTIVE PULMONARY DISEASE, UNSPECIFIED Status: Chronic Priority: Medium Current Visit: Yes Problem Details: No recent history of fever or bronchitic type symptoms. Note additional history of sleep apnea with patient not having his machine with him. Radiology read today's chest xray as unremarkable. Qualifiers: COPD type: emphysema Emphysema type: panlobular Qualified Code(s): J43.1 - Panlobular emphysema (7) Dyslipidemia SNOMED Code(s): 942638257 ICD Code: E78.5 - HYPERLIPIDEMIA, UNSPECIFIED Status: Chronic Priority: Medium Current Visit: Yes Problem Details: Currently under therapy. Lipid panel on 04/03 showed persistent dyslipidemia. Secondary to his persistent CK elevation his gemfibrozil held. CK now improved. Given CK elevation and intermittent confusion issues will, for now, have patient d/c Gemfibrozil. (8) Elevated LFTs SNOMED Code(s): 104551845, 234532099 ICD Code: R79.89 - OTHER SPECIFIED ABNORMAL FINDINGS OF BLOOD CHEMISTRY Status: Chronic Priority: Medium Current Visit: Yes Problem Details: Li lindsay secondary to fatty liver with no abdominal complaints at this time. Note significant dyslipidemia as above. (9) Peptic reflux disease SNOMED Code(s): 332898785 ICD Code: K21.9 - GASTRO-ESOPHAGEAL REFLUX DISEASE WITHOUT ESOPHAGITIS Status: Chronic Priority: Medium Current Visit: Yes Problem Details: Stable by history with no anemia during CBC at [facility] prior to admission, however some mild anemia today. Vitamin B12 level was normal as above. Further work-up depending on his clinical course. (10) Renal insufficiency SNOMED Code(s): 093002650, 143917674 ICD Code: N28.9 - DISORDER OF KIDNEY AND URETER, UNSPECIFIED Status: Chronic Priority: Medium Current Visit: Yes Problem Details: Diabetic nephropathy with creatinine of 2.56 at [facility] on 04/02 prior to admission with improved creatinine of 2.05 on 04/03. 1.44 today. Follow up with PCP (11) IDDM (insulin dependent diabetes mellitus) SNOMED Code(s): 27566644 ICD Code: [id number] - Status: Chronic Priority: High Current Visit: No Problem Details: Poor control with glycosylated hemoglobin of 11.1% although random glucose of 108 at [facility] in [place] on 04/02/2020. Dietary noncompliance may be an issue. Follow up with PCP - Patient Summary/Data Hospital Course: Patient's hyponatremia corrected over several days using hypertonic saline. Confusion resolved today. Creatinine improved as is Magnesium. Patient would like to go home. Close follow up with PCP advised. Precautions reviewed at time of discharge. To return to ER as needed PRN sudden problems/worsening. - Patient Instructions Diet: Diabetic Diet Fluid Restriction: 1500 mL Activity: As Tolerated Driving: Do Not Drive Showering/Bathing: May Shower Other/Special Instructions: Remember to stop the hydrochlorothiazide. We lowered the dose for your Metformin and Lisinopril. This is because of your k idney function. Also stop your cholesterol medicine for now. Follow up next week at clinic to see how you are doing and to get your sodium rechecked. You may need additional testing if your sodium starts to fall again. You also need a referral and an appointment to see neurosurgery so they can check out the finding on your recent head scan. Follow up otherwise as needed if you have any acute changes/problems. - Discharge Plan *PRESCRIPTION DRUG MONITORING PROGRAM REVIEWED*: Not Applicable *COPY OF PRESCRIPTION DRUG MONITORING REPORT IN PATIENT MARLENE: Not Applicable Prescriptions/Med Rec: metFORMIN [Glucophage] 500 mg PO BIDMEALS #60 tablet Magnesium Oxide [Magnesium] 400 mg PO DAILY #90 tablet amLODIPine [Norvasc] 5 mg PO QPM #30 tablet lisinopriL [Prinivil] 20 mg PO DAILY #30 tablet Home Medications: Home Meds Gabapentin [Neurontin] 600 mg PO BID@08,20 06/28/18 [History] Oxybutynin Chloride 5 mg PO DAILY 06/28/18 [History] Cholecalciferol (Vitamin D3) [Vitamin D3] 2,000 unit PO DAILY 03/03/20 [History] Diclofenac Sodium 50 mg PO BID@03/03/20 [History] Dulaglutide [Trulicity] 1.5 mg PO Q7D 03/03/20 [History] Memantine [Namenda] 10 mg PO BID 03/03/20 [History] Non-Formulary Medication [NF Drug] 75 unit SUBCUT BEDTIME 03/03/20 [History] Acetaminophen 500 mg PO Q6HR PRN 04/02/20 [History] Aspirin 81 mg PO DAILY 04/02/20 [History] Khrtbzez-Dwojftd-Dnlg 149-Hyal [Glucosamine-Chondr Complex Tab] 1 each PO DAILY 04/02/20 [History] Insulin Regular, Human [NovoLIN R] 30 units SUBCUT WITHDINNER 04/02/20 [History] Insulin Regular, Human [NovoLIN R] 35 units SUBCUT ACBREAKFAST 04/02/20 [History] Meclizine [Antivert] 12.5 mg PO BID PRN 04/02/20 [History] Multivitamin [Multivitamins] 1 each PO DAILY 04/02/20 [History] Powhattan-3 Fatty Acids [Powhattan-3] 100 mg PO DAILY 04/02/20 [History] Omeprazole 40 mg PO DAILY 04/02/20 [History] Sennosides/Docusate Sodium [Senna-S] 1 each PO DAILY 04/02/20 [History] Turmeric Root Extract [Turmeric Curcumin] 500 mg PO DAILY 04/02/20 [History] Vitamin B Complex 1 each PO DAILY 04/02/20 [History] Zinc 50 mg PO DAILY 04/02/20 [History] Magnesium Oxide [Magnesium] 400 mg PO DAILY #90 tablet 04/04/20 [Rx] amLODIPine [Norvasc] 5 mg PO QPM #30 tablet 04/04/20 [Rx] lisinopriL [Prinivil] 20 mg PO DAILY #30 tablet 04/04/20 [Rx] metFORMIN [Glucophage] 500 mg PO BIDMEALS #60 tablet 04/04/20 [Rx] Patient Handouts: Sodium Test Forms: ED Department Discharge Referrals: Jackeline Steele NP [Primary Care Provider] - - Discharge Summary/Plan Comment DC Time >30 min.: No - General Info Date of Service: 04/04/20 Admission Dx/Problem (Free Text: 1. Hyponatremia 2. Confusion Subjective Update: Patient feels fine. Says no acute complaints. Would like to go home. Functional Status: Reports: Pain Controlled, Tolerating Diet, Ambulating, Urinating. Denies: New Symptoms - Review of Systems General: Reports: No Symptoms HEENT: Reports: Glasses Pulmonary: Reports: No Symptoms Cardiovascular: Reports: No Symptoms Gastrointestinal: Reports: No Symptoms Genitourinary: Reports: Other (no acute changes from baseline) Musculoskeletal: Reports: Other (no acute changes from baseline) Skin: Reports: No Symptoms Neurological: Reports: No Symptoms Psychiatric: Reports: No Symptoms - Patient Data Vitals - Most Recent: Last Vital Signs Temp 36.2 C 04/04/20 12:00 Pulse 69 04/04/20 12:00 Resp 20 04/04/20 12:00 BP 155/75 H 04/04/20 12:00 Pulse Ox 100 04/04/20 12:00 Weight - Most Recent: 103.328 kg I&O - Last 24 hours: Intake & Output 04/04/20 04/04/20 04/04/20 06:59 14:59 22:59 Intake Total 1000 1110 Balance 1000 1110 Lab Results - Last 24 hrs: Laboratory Results - last 24 hr 04/03/20 04/04/20 04/04/20 Range/Units 06:40 07:15 07:15 WBC 5.7 (4.0-10.2) K/uL RBC 4.19 L (4.33-5.41) M/uL Hgb 13.0 L (13.1-16.8) g/dL Hct 37.6 L (39.0-49.0) % MCV 89.7 (84.0-98.0) fL MCH 31.0 (28.2-33.3) pg MCHC 34.6 (31.7-36.0) g/dL RDW 12.9 (11.2-14.1) % Plt Count 223 (150-350) K/uL Neut % (Auto) 64.3 (45.0-80.0) % Lymph % (Auto) 22.2 (10.0-50.0) % Armstrong % (Auto) 12.1 (2.0-14.0) % Eos % (Auto) 0.9 (0.0-5.0) % Baso % (Auto) 0.5 (0.0-2.0) % Neut # (Auto) 3.67 (1.40-7.00) K/uL Lymph # (Auto) 1.27 (0.50-3.50) K/uL Armstrong # (Auto) 0.69 (0.00-1.00) K/uL Eos # (Auto) 0.05 (0.00-0.50) K/uL Baso # (Auto) 0.03 (0.00-0.20) K/uL Sodium 137 D (136-145) mmol/L Potassium 3.7 (3.5-5.1) mmol/L Chloride 100 (98-107) mmol/L Carbon Dioxide 29.3 (21.0-32.0) mmol/L BUN 35 H (7-18) mg/dL Creatinine 1.44 H (0.51-1.17) mg/dL Est Cr Clr Drug Dosing 46.35 mL/min Estimated GFR (MDRD) 48 mL/min Glucose 75 (74-106) mg/dL Uric Acid 5.1 (2.6-7.2) mg/dL Calcium 9.1 (8.5-10.1) mg/dL Magnesium 2.2 (1.8-2.4) mg/dL Total Bilirubin 0.6 (0.2-1.0) mg/dL AST 39 H (15-37) U/L ALT 42 (12-78) U/L Alkaline Phosphatase 39 L (46-116) IU/L Creatine Kinase 101 (26-308) U/L Creatine Kinase Index 2.2 (0.0-2.5) % CK-MB (CK-2) 2.20 (0.00-3.60) ng/mL Troponin I 0.015 (0.000-0.056) ng/mL NT-Pro-B Natriuret Pep 389 H (0-125) pg/mL Total Protein 6.4 (6.4-8.2) g/dL Albumin 3.2 L (3.4-5.0) g/dL Prolactin 11.4 (2.6-13.1) ng/mL BEATRIZ Results - Last 24 hrs: Microbiology 04/02/20 21:45 Urine Culture - Final Urine, Voided MIXED POSITIVE AMBER DAY 2 Med Orders - Current: Current Medications Acetaminophen (Tylenol) 650 mg PO Q4H PRN PRN Reason: Pain Amlodipine Besylate (Norvasc) 5 mg PO QPM [facility] Last Admin: 04/03/20 17:10 Dose: 5 mg Documented by: Aspirin (Aspirin) 81 mg PO DAILY [facility] Last Admin: 04/04/20 07:51 Dose: 81 mg Documented by: Gabapentin (Neurontin) 600 mg PO BID@ [facility] Last Admin: 04/04/20 07:52 Dose: 600 mg Documented by: Sodium Chloride (Normal Saline) 1,000 mls @ 75 mls/hr IV ASDIRECTED [facility] Last Admin: 04/04/20 08:34 Dose: 75 mls/hr Documented by: Insulin Glargine (Lantus) 75 unit SUBCUT BEDTIME [facility] Last Admin: 04/03/20 19:42 Dose: 75 units Documented by: Insulin Human Regular (Humulin R) 30 unit SUBCUT DAILY@1700 [facility] Last Admin: 04/03/20 17:08 Dose: 30 units Documented by: Insulin Human Regular (Humulin R) 35 unit SUBCUT ACBREAKFAST [facility] Last Admin: 04/04/20 07:49 Dose: 35 units Documented by: Lisinopril (Prinivil) 20 mg PO DAILY [facility] Last Admin: 04/04/20 07:51 Dose: 20 mg Documented by: Metformin HCl (Glucophage) 500 mg PO BIDMEALS [facility] Last Admin: 04/04/20 07:51 Dose: 500 mg Documented by: Dulaglutide [ (Trulicity] 1.5mg) 1.5 mg PO Q7D [facility] Omeprazole (Omeprazole) 40 mg PO DAILY [facility] Last Admin: 04/04/20 07:52 Dose: 40 mg Documented by: Senna/Docusate Sodium (Senna Plus) 1 tab PO DAILY [facility] Last Admin: 04/04/20 07:51 Dose: 1 tab Documented by: Sodium Chloride (Saline Flush) 10 ml FLUSH ASDIRECTED PRN PRN Reason: Keep Vein Open Last Admin: 04/03/20 07:55 Dose: 10 ml Documented by: Sodium Chloride (Saline Flush) 10 ml FLUSH Q12HR PRN PRN Reason: Keep Vein Open Last Admin: 04/03/20 19:08 Dose: 10 ml Documented by: Temazepam (Restoril) 15 mg PO BEDTIME PRN PRN Reason: Insomnia Discontinued Medications Amlodipine Besylate (Norvasc) 5 mg PO DAILY [facility] Last Admin: 04/03/20 11:51 Dose: Not Given Documented by: Fenofibrate (Fenofibrate) 134 mg PO DAILY [facility] Last Admin: 04/03/20 07:53 Dose: 134 mg Documented by: Hydrochlorothiazide (Hydrochlorothiazide) 12.5 mg PO DAILY [facility] Last Admin: 04/03/20 07:53 Dose: 12.5 mg Documented by: Magnesium Sulfate 4 gm/ Premix 100 mls @ 200 mls/hr IV ONETIME ONE Stop: 04/02/20 23:40 Last Admin: 04/03/20 07:24 Dose: 200 mls/hr Documented by: Sodium Chloride (Normal Saline) 1,000 mls @ 100 mls/hr IV ASDIRECTED [facility] Last Infusion: 04/03/20 19:06 Dose: Infused Documented by: Sodium Chloride (Sodium Chloride 3%) 500 mls @ 75 mls/hr IV ASDIRECTED [facility] Stop: 04/03/20 06:24 Last Admin: 04/03/20 00:31 Dose: 75 mls/hr Documented by: Magnesium Sulfate (Magnesium Sulfate In Water Premix) Confirm Administered Dose 100 mls @ as directed .ROUTE .STK-MED ONE Stop: 04/03/20 07:17 Last Admin: 04/03/20 07:28 Dose: Not Given Documented by: Lisinopril (Prinivil) 40 mg PO DAILY [facility] Last Admin: 04/03/20 11:51 Dose: Not Given Documented by: Metformin HCl (Glucophage) 1,000 mg PO BIDMEALS [facility] Last Admin: 04/03/20 11:51 Dose: Not Given Documented by: - Exam General: Reports: Alert, Oriented, Cooperative, No Acute Distress HEENT: Reports: Pupils Equal, Pupils Reactive, EOMI, Mucous Membr. Moist/[place] Neck: Reports: Supple Lungs: Reports: Clear to Auscultation, Normal Respiratory Effort Cardiovascular: Reports: Regular Rate, Regular Rhythm GI/Abdominal Exam: Normal Bowel Sounds, Soft, Non-Tender, No Distention (Male) Exam: Deferred Rectal (Males) Exam: Deferred Back Exam: Denies: CVA Tenderness (L), CVA Tenderness (R), Muscle Spasm Extremities: Non-Tender, Normal Capillary Refill Skin: Reports: Warm, Dry Neurological: Reports: No New Focal Deficit Psy/Mental Status: Reports: Alert, Normal Affect, Normal Mood
[2020-04-07] MEDS ORDERED: DULAGLUTIDE 1.5 MG PO SCH (08:00)
== END 2020-04-04 17:05 | disposition home or self-care (01) | DRG 641 ==
LOC: LL.ED 21:27 → LL.MS 22:46 → UNDOADMIN 22:46 → LL.MS 23:01
PROVIDERS: ADMIT Family Medicine; ATTEND Family Medicine
DX: E87.1 Hypo-osmolality and hyponatremia (principal); Q04.6 Congenital cerebral cysts; I44.0 Atrioventricular block, first degree; K21.9 Gastro-esophageal reflux disease without esophagitis; E78.5 Hyperlipidemia, unspecified; K76.0 Fatty (change of) liver, not elsewhere classified; N28.9 Disorder of kidney and ureter, unspecified; N18.9 Chronic kidney disease, unspecified; E11.9 Type 2 diabetes mellitus without complications; I12.9 Hypertensive chronic kidney disease with stage 1 through stage 4 chronic kidney disease, or unspecified chronic kidney disease; E11.22 Type 2 diabetes mellitus with diabetic chronic kidney disease; E83.42 Hypomagnesemia; J43.1 Panlobular emphysema; R79.89 Other specified abnormal findings of blood chemistry; H54.7 Unspecified visual loss; E78.00 Pure hypercholesterolemia, unspecified; H91.90 Unspecified hearing loss, unspecified ear; H91.13 Presbycusis, bilateral; M10.9 Gout, unspecified; E11.42 Type 2 diabetes mellitus with diabetic polyneuropathy; Z86.010 Personal history of colon polyps; I10 Essential (primary) hypertension; G47.30 Sleep apnea, unspecified; N40.0 Benign prostatic hyperplasia without lower urinary tract symptoms; Z90.49 Acquired absence of other specified parts of digestive tract; E11.21 Type 2 diabetes mellitus with diabetic nephropathy; Z68.34 Body mass index [BMI] 34.0-34.9, adult; Z99.81 Dependence on supplemental oxygen; M19.90 Unspecified osteoarthritis, unspecified site; G89.29 Other chronic pain; M54.9 Dorsalgia, unspecified; G30.9 Alzheimer's disease, unspecified; M54.2 Cervicalgia; F02.80 Dementia in other diseases classified elsewhere, unspecified severity, without behavioral disturbance, psychotic disturbance, mood disturbance, and anxiety; E66.9 Obesity, unspecified; E11.40 Type 2 diabetes mellitus with diabetic neuropathy, unspecified; Z91.81 History of falling; Z96.649 Presence of unspecified artificial hip joint; Z98.890 Other specified postprocedural states; Z79.899 Other long term (current) drug therapy; Z79.82 Long term (current) use of aspirin; Z79.4 Long term (current) use of insulin
CPT/HCPCS: 36415; 71045; 80053; 80061; 81001; 82043; 82550; 82553; 82570; 82607; 83605; 83735; 83880; 83970; 84100; 84146; 84443; 84484; 84550; 85025; 85610; 85730; 87086; 93005; 99222; 99232; 99238; 99285-25; A9270-GY; J1815-GY; J3475; J7030; J7040

== ENCOUNTER 2020-10-30 15:42 | Emergency (ER) | payer MEDICARE, OTHER ==
[2020-10-30 16:32] LABS: CHLORIDE,CL 100 mmol/L (98-107); SODIUM,NA 137 mmol/L (136-145)
--- NOTE | 2020-10-30 16:53 | EDM.PDOC ---
ED HPI GENERAL MEDICAL PROBLEM - General Chief Complaint: Neurological Problem Stated Complaint: fall, confusion Time Seen by Provider: 10/30/20 15:53 Source of Information: Reports: Patient, Other ([facility] staff) History Limitations: Reports: No Limitations - History of Present Illness INITIAL COMMENTS - FREE TEXT/NARRATIVE: Patient sent here for evaluation after he was observed to appear a little confused and had a hard time getting out of his chair by employees at the [facility]. Earlier today he tipped sideways in his chair while getting his toe nails clipped and landed on his shoulder. No obvious head trauma at that time. Appeared to be fine after the incident. The above changes were not noted until after he took his nap post-lunch. Upon arrival he is verbal and interactive. Denies any pain or acute changes. Insists that he feels fine. ER nurse thought that patient looked like he might have mild droop one corner of mouth but during appeals writer's exam patient had equal tone/strength bilaterally and no facial asymmetry. - Related Data Allergies Allergy/AdvReac Type Severity Reaction Status Date / Time No Known Allergies Allergy Verified 10/30/20 16:32 Home Meds: Home Meds Gabapentin [Neurontin] 600 mg PO BID@06/28/18 [History] Oxybutynin Chloride 5 mg PO DAILY 06/28/18 [History] Cholecalciferol (Vitamin D3) [Vitamin D3] 2,000 unit PO DAILY 03/03/20 [History] Diclofenac Sodium 50 mg PO BID@03/03/20 [History] Dulaglutide [Trulicity] 1.5 mg PO Q7D 03/03/20 [History] Memantine [Namenda] 10 mg PO BID 03/03/20 [History] Non-Formulary Medication [NF Drug] 75 unit SUBCUT BEDTIME 03/03/20 [History] Acetaminophen 500 mg PO Q6HR PRN 04/02/20 [History] Aspirin 81 mg PO DAILY 04/02/20 [History] Jetzykka-Abolkbs-Kpjz 149-Hyal [Glucosamine-Chondr Complex Tab] 1 each PO DAILY 04/02/20 [History] Insulin Regular, Human [NovoLIN R] 30 units SUBCUT WITHDINNER 04/02/20 [History] Insulin Regular, Human [NovoLIN R] 35 units SUBCUT ACBREAKFAST 04/02/20 [History] Meclizine [Antivert] 12.5 mg PO BID PRN 04/02/20 [History] Multivitamin [Multivitamins] 1 each PO DAILY 04/02/20 [History] Azle-3 Fatty Acids [Azle-3] 100 mg PO DAILY 04/02/20 [History] Omeprazole 40 mg PO DAILY 04/02/20 [History] Sennosides/Docusate Sodium [Senna-S] 1 each PO DAILY 04/02/20 [History] Turmeric Root Extract [Turmeric Curcumin] 500 mg PO DAILY 04/02/20 [History] Vitamin B Complex 1 each PO DAILY 04/02/20 [History] Zinc 50 mg PO DAILY 04/02/20 [History] Magnesium Oxide [Magnesium] 400 mg PO DAILY #90 tablet 04/04/20 [Rx] amLODIPine [Norvasc] 5 mg PO QPM #30 tablet 04/04/20 [Rx] lisinopriL [Prinivil] 20 mg PO DAILY #30 tablet 04/04/20 [Rx] metFORMIN [Glucophage] 500 mg PO BIDMEALS #60 tablet 04/04/20 [Rx] Past Medical History HEENT History: Reports: Allergic Rhinitis, Hard of Hearing, Impaired Vision, Other (See Below) Other HEENT History: Bilateral presbycusis with current hearing aid therapy. Patient wears reading glasses. Cardiovascular History: Reports: High Cholesterol, Hypertension, Other (See Below) Other Cardiovascular History: Dyslipidemia. Respiratory History: Reports: Bronchitis, Recurrent, COPD, Intubation, Previous, Sleep Apnea, Other (See Below) Other Respiratory History: Patient has been compliant with his CPAP. Gastrointestinal History: Reports: Colon Polyp, GERD Genitourinary History: Reports: BPH, Chronic Renal Insuffiency, Diabetic Nephropathy, Prostate Disorder Musculoskeletal History: Reports: Arthritis, Back Pain, Chronic, Gout, Neck Pain, Chronic, Osteoarthritis Neurological History: Reports: Alzheimers Disease, Neuropathy, Diabetic, Neuropathy, Peripheral, Vertigo, Other (See Below) Other Neuro History: Recurrent falls. Mild to moderate cerebral atrophy by MRI. 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 Psychiatric History: Reports: Dementia Endocrine/Metabolic History: Reports: Diabetes, Type II, Obesity/BMI 30+, Other (See Below) Other Endocrine/Metabolic History: Chronic hyponatremia. Hematologic History: Reports: None Immunologic History: Reports: None Oncologic (Cancer) History: Reports: None Dermatologic History: Reports: None - Infectious Disease History Infectious Disease History: Reports: Chicken Pox, Measles, Mumps - Past Surgical History Head Surgeries/Procedures: Reports: None HEENT Surgical History: Reports: None Cardiovascular Surgical History: Reports: None GI Surgical History: Reports: Appendectomy, Colonoscopy, Polypectomy, Other (See Below) Other GI Surgeries/Procedures: Appendectomy at age 1. Last colonoscopy on 06/29/2018 was normal with polypectomy at time of colonoscopy on 11/29/2014. Male Surgical History: Reports: Circumcision, Other (See Below) Other Male Surgeries/Procedures: Circumcision as an infant. Neurological Surgical History: Reports: None Musculoskeletal Surgical History: Reports: None, Hip Replacement, Joint Replacement, Other (See Below) Other Musculoskeletal Surgeries/Procedures:: Right knee total knee arthroplasty in about 2009 with redo procedure on 11/12/2013 complicated by postoperative bleed and subsequent infection with right knee I&D and drain placement on 12/11/2013. Left hip TEP on 05/11/2016. Oncologic Surgical History: Reports: None Dermatological Surgical History: Reports: None - Past Imaging History Past Imaging History: Reports: MRA (MRA of the brain on 03/03/2020 with results as above.), MRI (MRI of the brain on 03/10/2020 and 01/02/2019. MRI of the left hip on 12/01/2015 and the right hip on 01/13/2011.) Social & Family History - Family History HEENT: Reports: None Cardiac: Reports: None Respiratory: Reports: COPD, Other (See Below) Other Respiratory Family Hisory: Father with fatal COPD at age 55 with history of tobacco use. GI: Reports: None : Reports: None OBGYN: Reports: None Musculoskeletal: Reports: None Neurological: Reports: None Psychiatric: Reports: None Endocrine/Metabolic: Reports: None Hematologic: Reports: None Immunologic: Reports: None Dermatologic: Reports: None Oncologic: Reports: None - Tobacco Use Tobacco Use Status *Q: Never Tobacco User Second Hand Smoke Exposure: No - Caffeine Use Caffeine Use: Reports: Coffee - Recreational Drug Use Recreational Drug Use: No - Living Situation & Occupation Living situation: Reports: (2014. 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 ED EXAM, GENERAL - Physical Exam Exam: See Below Exam Limited By: No Limitations General Appearance: Alert, WD/WN, No Apparent Distress Eye Exam: Bilateral Eye: EOMI, PERRL Ears: Normal External Exam, Normal Canal, Hearing Grossly Normal Nose: No: Nasal Deformity, Nasal Swelling Throat/Mouth: Normal Lips, Normal Voice, No Airway Compromise Head: Atraumatic, Normocephalic. No: Facial Swelling, Facial Tenderness, Sinus Tenderness Neck: Normal Inspection, Supple, Non-Tender, Full Range of Motion Respiratory/Chest: No Respiratory Distress, Lungs Clear, Normal Breath Sounds, No Accessory Muscle Use, Chest Non-Tender Cardiovascular: Regular Rate, Rhythm, No Edema, No Murmur GI/Abdominal: Normal Bowel Sounds, Soft, Non-Tender, No Distention (Male) Exam: Deferred Rectal (Males) Exam: Deferred Back Exam: Normal Inspection. No: CVA Tenderness (L), CVA Tenderness (R), Muscle Spasm, Paraspinal Tenderness, Vertebral Tenderness Extremities: Normal Inspection, Normal Range of Motion, Non-Tender, No Pedal Edema, Normal Capillary Refill Neurological: Alert, Oriented, CN II-XII Intact, Normal Cognition, No Motor/Sensory Deficits Psychiatric: Normal Affect, Normal Mood Skin Exam: Warm, Dry, Intact, Normal Color Course - Vital Signs Last Recorded V/S: Last Vital Signs Temp 36.4 C 10/30/20 16:04 Pulse 72 10/30/20 16:04 Resp 16 10/30/20 16:04 BP 150/80 H 10/30/20 16:04 Pulse Ox 95 10/30/20 16:04 - Orders/Labs/Meds Orders: Active Orders 24 hr Category Date Time Status Chest 1V Frontal [CR] Stat Exams 10/30/20 15:55 Taken Head wo Cont [CT] Stat Exams 10/30/20 15:43 Taken UA W/MICROSCOPIC [URIN] Stat Lab 10/30/20 15:54 Ordered Labs: Laboratory Tests 10/30/20 10/30/20 10/30/20 Range/Units 16:00 16:00 16:00 WBC 7.9 (4.0-10.2) K/uL RBC 4.65 (4.33-5.41) M/uL Hgb 13.8 (13.1-16.8) g/dL Hct 40.7 (39.0-49.0) % MCV 87.5 (84.0-98.0) fL MCH 29.7 (28.2-33.3) pg MCHC 33.9 (31.7-36.0) g/dL RDW 13.9 (11.2-14.1) % Plt Count 220 (150-350) K/uL Neut % (Auto) 63.6 (45.0-80.0) % Lymph % (Auto) 25.0 (10.0-50.0) % [place] % (Auto) 8.9 (2.0-14.0) % Eos % (Auto) 2.0 (0.0-5.0) % Baso % (Auto) 0.5 (0.0-2.0) % Neut # (Auto) 4.99 (1.40-7.00) K/uL Lymph # (Auto) 1.96 (0.50-3.50) K/uL [place] # (Auto) 0.70 (0.00-1.00) K/uL Eos # (Auto) 0.16 (0.00-0.50) K/uL Baso # (Auto) 0.04 (0.00-0.20) K/uL Sodium 137 (136-145) mmol/L Potassium 3.9 (3.5-5.1) mmol/L Chloride 100 (98-107) mmol/L Carbon Dioxide 27.7 (21.0-32.0) mmol/L BUN 21 H (7-18) mg/dL Creatinine 1.71 H (0.51-1.17) mg/dL Est Cr Clr Drug Dosing TNP Estimated GFR (MDRD) 40 mL/min Glucose 121 H (70-99) mg/dL Lactic Acid 1.7 (0.4-2.0) mmol/L Calcium 9.3 (8.5-10.1) mg/dL Magnesium 1.7 L (1.8-2.4) mg/dL Total Bilirubin 0.6 (0.2-1.0) mg/dL AST 28 (15-37) U/L ALT 43 (12-78) U/L Alkaline Phosphatase 52 (46-116) IU/L Troponin I 0.033 (0.000-0.056) ng/mL NT-Pro-B Natriuret Pep 270 H (0-125) pg/mL Total Protein 6.8 (6.4-8.2) g/dL Albumin 3.3 L (3.4-5.0) g/dL - Re-Assessments/Exams Free Text/Narrative Re-Assessment/Exam: 10/30/20 16:59 CT of head performed and was negative for acute changes. Labs ordered. Mildly low Mag and renal insufficiency noted. Pt feels well/denies any acute problems. No focal neuro changes noted. Unremarkable exam. Cannot rule out TIA based on history. OK to return back to [facility]. They are to continue to observe for changes and have patient follow up as needed if there are any concerns. Departure - Departure Time of Disposition: 16:50 Disposition: Home, Self-Care 01 Condition: Good Clinical Impression: Episode of altered cognition - Discharge Information *PRESCRIPTION DRUG MONITORING PROGRAM REVIEWED*: Not Applicable *COPY OF PRESCRIPTION DRUG MONITORING REPORT IN PATIENT MARLENE: Not Applicable Referrals: Jackeline Steele NP [Primary Care Provider] - Forms: ED Department Discharge Additional Instructions: Observe for changes. Follow up as needed if there are any concerns. Follow up with primary provider and have them increase patient's daily Magnesium dose as his level is still low. Sepsis Event Note (ED) - Evaluation Sepsis Screening Result: No Definite Risk - Focused Exam Vital Signs: Vital Signs Temp Pulse Resp BP Pulse Ox 10/30/20 16:04 36.4 C 72 16 150/80 H 95 - My Orders Last 24 Hours: My Active Orders 10/30/20 15:43 Head wo Cont [CT] Stat 10/30/20 15:54 UA W/MICROSCOPIC [URIN] Stat 10/30/20 15:55 Chest 1V Frontal [CR] Stat - Assessment/Plan Last 24 Hours: My Active Orders 10/30/20 15:43 Head wo Cont [CT] Stat 10/30/20 15:54 UA W/MICROSCOPIC [URIN] Stat 10/30/20 15:55 Chest 1V Frontal [CR] Stat
== END 2020-10-30 16:55 | disposition home or self-care (01) ==
LOC: LL.ED 15:42
DX: R41.89 Other symptoms and signs involving cognitive functions and awareness (principal); E83.42 Hypomagnesemia; I12.9 Hypertensive chronic kidney disease with stage 1 through stage 4 chronic kidney disease, or unspecified chronic kidney disease; E11.22 Type 2 diabetes mellitus with diabetic chronic kidney disease; N18.9 Chronic kidney disease, unspecified; J44.9 Chronic obstructive pulmonary disease, unspecified; K21.9 Gastro-esophageal reflux disease without esophagitis; E11.21 Type 2 diabetes mellitus with diabetic nephropathy; M10.9 Gout, unspecified; E11.42 Type 2 diabetes mellitus with diabetic polyneuropathy; E66.9 Obesity, unspecified; Z79.82 Long term (current) use of aspirin; Z79.4 Long term (current) use of insulin; Z79.899 Other long term (current) drug therapy
CPT/HCPCS: 36415; 70450; 71045; 80053; 81001; 83605; 83735; 83880; 84484; 85025; 99283; 99285-25

== ENCOUNTER 2021-02-01 15:52 | Emergency (ER) | payer MEDICARE, OTHER ==
[2021-02-01] MEDS ORDERED: Sodium Chloride 0.9% 10 ML Syringe FLUSH PRN (16:01)
[2021-02-01] MEDS ORDERED: Aspirin 81 MG Tab.Chew PO ONE (16:15)
[2021-02-01 16:21] LABS: PTT,PARTIAL THROMBOPLSTIN TIME 23.2 SEC (24.5-32.8)
--- NOTE | 2021-02-01 16:32 | EDM.PDOC ---
ED HPI GENERAL MEDICAL PROBLEM - General Chief Complaint: Cardiovascular Problem Stated Complaint: chest pain Time Seen by Provider: 02/01/21 16:02 Source of Information: Reports: Patient History Limitations: Reports: Altered Mental Status - History of Present Illness INITIAL COMMENTS - FREE TEXT/NARRATIVE: Pt. presents to ER via ambulance from assisted living. Pt. reported to nursing staff at the assisted living facility that he had been experiencing some chest pain. Pt. has a history of cognitive delay and was unable to say when the discomfort started. EMS was summoned. EMS states that the pt. was pain free during his transport. When the patient was asked about the discomfort, he denied having pain. When asked what his complaint was, he reported he had some abnormal feeling in the chest. During transport, pt. was noted to have an approx. 5 beat run of v-tach. He remained hemodynamically stable during this event and never lost consciousness. he denied any lightheadedness, palpitation, nausea, or vomiting. Pt. has a history of poorly controlled diabetes. He denies any history of CAD in the past. Onset Date: 02/01/21 Location: Reports: Chest Treatments TECHNICAL SERVICES REPRESENTATIVE: Reports: EKG - Related Data Allergies Allergy/AdvReac Type Severity Reaction Status Date / Time No Known Allergies Allergy Verified 02/01/21 16:09 Home Meds: Home Meds Gabapentin [Neurontin] 600 mg PO BID@06/28/18 [History] Oxybutynin Chloride 5 mg PO DAILY 06/28/18 [History] Cholecalciferol (Vitamin D3) [Vitamin D3] 2,000 unit PO DAILY 03/03/20 [History] Dulaglutide [Trulicity] 1.5 mg PO Q7D 03/03/20 [History] Memantine [Namenda] 10 mg PO BID 03/03/20 [History] Non-Formulary Medication [NF Drug] 75 unit SUBCUT BEDTIME 03/03/20 [History] Acetaminophen 500 mg PO Q6HR PRN 04/02/20 [History] Aspirin 81 mg PO DAILY 04/02/20 [History] Insulin Regular, Human [NovoLIN R] 30 units SUBCUT WITHDINNER 04/02/20 [History] Insulin Regular, Human [NovoLIN R] 35 units SUBCUT ACBREAKFAST 04/02/20 [History] Multivitamin [Multivitamins] 1 each PO DAILY 04/02/20 [History] [place]-3 Fatty Acids [[place]-3] 100 mg PO DAILY 04/02/20 [History] Sennosides/Docusate Sodium [Senna-S] 1 each PO DAILY 04/02/20 [History] Magnesium Oxide [Magnesium] 400 mg PO DAILY #90 tablet 04/04/20 [Rx] amLODIPine [Norvasc] 5 mg PO QPM #30 tablet 04/04/20 [Rx] lisinopriL [Prinivil] 20 mg PO DAILY #30 tablet 04/04/20 [Rx] metFORMIN [Glucophage] 500 mg PO BIDMEALS #60 tablet 04/04/20 [Rx] Dapagliflozin Propanediol [Farxiga] 5 mg PO DAILY 02/01/21 [History] Docusate Sodium/Sennosides [Senokot-S] 1 units PO DAILY 02/01/21 [History] Donepezil HCl [Aricept] 10 mg PO BEDTIME 02/01/21 [History] Famotidine 20 mg PO DAILY 02/01/21 [History] Furosemide 20 mg PO DAILY 02/01/21 [History] atorvaSTATin [Lipitor] 10 mg PO BEDTIME 02/01/21 [History] icosapent ethyL [Icosapent Ethyl] 1 gm PO BID 02/01/21 [History] Past Medical History HEENT History: Reports: Allergic Rhinitis, Hard of Hearing, Impaired Vision, Other (See Below) Other HEENT History: Bilateral presbycusis with current hearing aid therapy. Patient wears reading glasses. Cardiovascular History: Reports: High Cholesterol, Hypertension, Other (See Below) Other Cardiovascular History: Dyslipidemia. Respiratory History: Reports: Bronchitis, Recurrent, COPD, Intubation, Previous, Sleep Apnea, Other (See Below) Other Respiratory History: Patient has been compliant with his CPAP. Gastrointestinal History: Reports: Colon Polyp, GERD Genitourinary History: Reports: BPH, Chronic Renal Insuffiency, Diabetic Nephropathy, Prostate Disorder Musculoskeletal History: Reports: Arthritis, Back Pain, Chronic, Gout, Neck Pain, Chronic, Osteoarthritis Neurological History: Reports: Alzheimers Disease, Neuropathy, Diabetic, Neuropathy, Peripheral, Vertigo, Other (See Below) Other Neuro History: Recurrent falls. Mild to moderate cerebral atrophy by MRI. 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 Psychiatric History: Reports: Dementia Endocrine/Metabolic History: Reports: Diabetes, Type II, Obesity/BMI 30+, Other (See Below) Other Endocrine/Metabolic History: Chronic hyponatremia. Hematologic History: Reports: None Immunologic History: Reports: None Oncologic (Cancer) History: Reports: None Dermatologic History: Reports: None - Infectious Disease History Infectious Disease History: Reports: Chicken Pox, Measles, Mumps - Past Surgical History Head Surgeries/Procedures: Reports: None HEENT Surgical History: Reports: None Cardiovascular Surgical History: Reports: None GI Surgical History: Reports: Appendectomy, Colonoscopy, Polypectomy, Other (See Below) Other GI Surgeries/Procedures: Appendectomy at age 1. Last colonoscopy on 06/29/2018 was normal with polypectomy at time of colonoscopy on 11/29/2014. Male Surgical History: Reports: Circumcision, Other (See Below) Other Male Surgeries/Procedures: Circumcision as an . Neurological Surgical History: Reports: None Musculoskeletal Surgical History: Reports: None, Hip Replacement, Joint Replacement, Other (See Below) Other Musculoskeletal Surgeries/Procedures:: Right knee total knee arthroplasty in about 2009 with redo procedure on 11/12/2013 complicated by postoperative bleed and subsequent infection with right knee I&D and drain placement on 12/11/2013. Left hip TEP on 05/11/2016. Oncologic Surgical History: Reports: None Dermatological Surgical History: Reports: None - Past Imaging History Past Imaging History: Reports: MRA (MRA of the brain on 03/03/2020 with results as above.), MRI (MRI of the brain on 03/10/2020 and 01/02/2019. MRI of the left hip on 12/01/2015 and the right hip on 01/13/2011.) Social & Family History - Family History HEENT: Reports: None Cardiac: Reports: None Respiratory: Reports: COPD, Other (See Below) Other Respiratory Family Hisory: Father with fatal COPD at age 55 with history of tobacco use. GI: Reports: None : Reports: None OBGYN: Reports: None Musculoskeletal: Reports: None Neurological: Reports: None Psychiatric: Reports: None Endocrine/Metabolic: Reports: None Hematologic: Reports: None Immunologic: Reports: None Dermatologic: Reports: None Oncologic: Reports: None - Tobacco Use Tobacco Use Status *Q: Never Tobacco User Second Hand Smoke Exposure: No - Caffeine Use Caffeine Use: Reports: Coffee - Recreational Drug Use Recreational Drug Use: No - Living Situation & Occupation Living situation: Reports: (2014. 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.) ED ROS GENERAL - Review of Systems Review Of Systems: See Below Constitutional: Reports: No Symptoms HEENT: Reports: No Symptoms Respiratory: Reports: No Symptoms Cardiovascular: Reports: Chest Pain, Other (See HPI) Endocrine: Reports: No Symptoms GI/Abdominal: Reports: No Symptoms : Reports: No Symptoms Musculoskeletal: Reports: No Symptoms Skin: Reports: No Symptoms Neurological: Reports: No Symptoms Psychiatric: Reports: No Symptoms Hematologic/Lymphatic: Reports: No Symptoms Immunologic: Reports: No Symptoms ED EXAM, GENERAL - Physical Exam Exam: See Below Exam Limited By: No Limitations General Appearance: Alert, WD/WN, No Apparent Distress Head: Atraumatic, Normocephalic Neck: Normal Inspection, Supple, Non-Tender, Full Range of Motion Respiratory/Chest: No Respiratory Distress, Lungs Clear, Normal Breath Sounds, No Accessory Muscle Use, Chest Non-Tender Cardiovascular: Normal Peripheral Pulses, Regular Rate, Rhythm, No JVD GI/Abdominal: Soft, Non-Tender, No Distention, No Mass (Male) Exam: Deferred Rectal (Males) Exam: Deferred Extremities: Normal Inspection, Normal Range of Motion, Non-Tender, No Pedal Edema, Normal Capillary Refill Neurological: Alert, CN II-XII Intact, No Motor/Sensory Deficits, Confused Psychiatric: Normal Affect, Normal Mood Skin Exam: Warm, Dry, Intact, Normal Color, No Rash Lymphatic: No Adenopathy #1 Interpretation Rhythm: NSR (Frequent PVCs) Course - Vital Signs Last Recorded V/S: Last Vital Signs Temp 37.1 C 02/01/21 16:00 Pulse 97 02/01/21 16:31 Resp 16 02/01/21 16:31 BP 166/75 H 02/01/21 16:31 Pulse Ox 98 02/01/21 16:31 - Orders/Labs/Meds Orders: Active Orders 24 hr Category Date Time Status EKG Documentation Completion [RC] ASDIRECTED Care 02/01/21 16:02 Active Peripheral IV Care [RC] . DIRECTED Care 02/01/21 16:02 Active Chest 1V Frontal [CR] Stat Exams 02/01/21 16:16 Taken Sodium Chloride 0.9% [Saline Flush] Med 02/01/21 16:01 Active 10 ml FLUSH ASDIRECTED PRN Peripheral IV Insertion Adult [OM.PC] Routine Oth 02/01/21 16:02 Ordered Medication Orders Sodium Chloride (Sodium Chloride 0.9% 10 Ml Syringe) 10 ml FLUSH ASDIRECTED PRN PRN Reason: Keep Vein Open Labs: Laboratory Tests 02/01/21 02/01/21 02/01/21 Range/Units 16:02 16:02 16:02 WBC 10.9 H (4.0-10.2) K/uL RBC 4.41 (4.33-5.41) M/uL Hgb 13.2 (13.1-16.8) g/dL Hct 39.0 (39.0-49.0) % MCV 88.4 (84.0-98.0) fL MCH 29.9 (28.2-33.3) pg MCHC 33.8 (31.7-36.0) g/dL RDW 13.8 (11.2-14.1) % Plt Count 323 D (150-350) K/uL Neut % (Auto) 72.0 (45.0-80.0) % Lymph % (Auto) 17.1 (10.0-50.0) % [place] % (Auto) 8.8 (2.0-14.0) % Eos % (Auto) 1.7 (0.0-5.0) % Baso % (Auto) 0.4 (0.0-2.0) % Neut # (Auto) 7.85 H (1.40-7.00) K/uL Lymph # (Auto) 1.87 (0.50-3.50) K/uL [place] # (Auto) 0.96 (0.00-1.00) K/uL Eos # (Auto) 0.19 (0.00-0.50) K/uL Baso # (Auto) 0.04 (0.00-0.20) K/uL PT 9.9 (9.5-12.0) SEC INR 1.0 APTT 23.2 L (24.5-32.8) SEC Sodium 140 (136-145) mmol/L Potassium 4.0 (3.5-5.1) mmol/L Chloride 101 (98-107) mmol/L Carbon Dioxide 25.1 (21.0-32.0) mmol/L BUN 24 H (7-18) mg/dL Creatinine 1.72 H (0.51-1.17) mg/dL Est Cr Clr Drug Dosing 35.55 mL/min Estimated GFR (MDRD) 39 mL/min Glucose 150 H (70-99) mg/dL Calcium 9.0 (8.5-10.1) mg/dL Phosphorus 5.0 H (2.6-4.7) mg/dL Magnesium 1.9 (1.8-2.4) mg/dL Total Bilirubin 0.4 (0.2-1.0) mg/dL AST 26 (15-37) U/L ALT 37 (12-78) U/L Alkaline Phosphatase 88 (46-116) IU/L Troponin I 0.022 (0.000-0.056) ng/mL NT-Pro-B Natriuret Pep 235 H (0-125) pg/mL Total Protein 7.2 (6.4-8.2) g/dL Albumin 3.0 L (3.4-5.0) g/dL Meds: Medications Generic Name Dose Route Start Last Admin Trade Name Freq PRN Reason Stop Dose Admin Sodium Chloride 10 ml 02/01/21 16:01 Sodium Chloride 0.9% 10 Ml Syringe FLUSH ASDIRECTED PRN Keep Vein Open Discontinued Medications Generic Name Dose Route Start Last Admin Trade Name Freq PRN Reason Stop Dose Admin Aspirin 324 mg 02/01/21 16:15 02/01/21 16:18 Aspirin 81 Mg Tab.Chew PO 02/01/21 16:16 324 mg ONETIME ONE Administration - Radiology Interpretation Free Text/Narrative:: Cardiomegaly, CHF Departure - Departure Time of Disposition: 17:28 Disposition: DC/Tfer to Acute Hospital 02 Reason for Transfer *Q: Other Clinical Impression: Run of ventricular premature complexes, CHF (congestive heart failure) Referrals: Yvette Del Angel NP [Nurse Practitioner] - Forms: ED Department Discharge Sepsis Event Note (ED) - Evaluation Sepsis Screening Result: No Definite Risk - Focused Exam Vital Signs: Vital Signs Temp Pulse Resp BP Pulse Ox 02/01/21 16:31 97 16 166/75 H 98 02/01/21 16:14 96 16 159/66 H 97 02/01/21 16:00 37.1 C 95 16 172/76 H 96 - My Orders Last 24 Hours: My Active Orders 02/01/21 16:01 Sodium Chloride 0.9% [Saline Flush] 10 ml FLUSH ASDIRECTED PRN 02/01/21 16:02 EKG Documentation Completion [RC] ASDIRECTED Peripheral IV Care [RC] . DIRECTED Peripheral IV Insertion Adult [OM.PC] Routine 02/01/21 16:16 Chest 1V Frontal [CR] Stat - Assessment/Plan Last 24 Hours: My Active Orders 02/01/21 16:01 Sodium Chloride 0.9% [Saline Flush] 10 ml FLUSH ASDIRECTED PRN 02/01/21 16:02 EKG Documentation Completion [RC] ASDIRECTED Peripheral IV Care [RC] . DIRECTED Peripheral IV Insertion Adult [OM.PC] Routine 02/01/21 16:16 Chest 1V Frontal [CR] Stat Plan: Pt. will be transported to [facility]. He is a code 1. Dr. Paz is accepting. Pt. will be transported via [facility] ground ambulance. Discussed findings with patient/family for the need for further workup/evaluation. All questions were answered.
== END 2021-02-01 18:35 ==
LOC: LL.ED 15:52
DX: I13.0 Hypertensive heart and chronic kidney disease with heart failure and stage 1 through stage 4 chronic kidney disease, or unspecified chronic kidney disease (principal); N18.9 Chronic kidney disease, unspecified; I50.9 Heart failure, unspecified; I49.3 Ventricular premature depolarization; J44.9 Chronic obstructive pulmonary disease, unspecified; E11.21 Type 2 diabetes mellitus with diabetic nephropathy; E66.9 Obesity, unspecified; Z68.30 Body mass index [BMI] 30.0-30.9, adult; Z79.4 Long term (current) use of insulin; Z79.899 Other long term (current) drug therapy
CPT/HCPCS: 36415; 71045; 80053; 83735; 83880; 84100; 84484; 85025; 85610; 85730; 93005; 99285-25; A9270-GY

== ENCOUNTER 2021-02-05 17:05 | Emergency (ER) | payer MEDICARE, OTHER ==
[2021-02-05] MEDS ORDERED: Famotidine 20 MG/2 ML SDV IVPUSH ONE (17:07)
[2021-02-05] MEDS ORDERED: Sodium Chloride 0.9% 10 ML Syringe FLUSH PRN (17:07)
--- NOTE | 2021-02-05 17:07 | EDM.PDOC ---
ED HPI GENERAL MEDICAL PROBLEM - General Chief Complaint: Neurological Problem Stated Complaint: stroke code Time Seen by Provider: 02/05/21 17:07 Source of Information: Reports: Patient, EMS, Other ([facility] EMR, [facility] EMR reviewed on 04/02/2020.). Denies: EMS Notes Reviewed (Not available at time of dictation), Old Records (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 They did not call a stroke code but did contact me concerning their initial findings of questionable minimal confusion and possible dysarthria, however no other neurological deficits noted. The patient is a somewhat poor historian secondary to his baseline confusion, which does appear stable to me based on my previous evaluations of this patient. No history of recent headaches, visual changes, diplopia, change in mental status, or other change in neurological status. No apparent recent fall, head injury, etc., although the patient was transferred and hospitalized for possible brief ventricular tachycardia at [facility] in [place] on 02/01/2021 with negative work-up as below. He denies any recent alcohol, drug, etc intake with apparent normal clinic visit in this facility earlier this morning. He denies any gross hematuria, colic, or the UTI symptoms. The patient denies any chest pain/pressure, heart flutter, dizziness, orthostasis, orthopnea, diaphoresis, paresthesias, recent decreased exercise tolerance, or any other anginal-type symptoms. No recent history of abdominal pain, heartburn, nausea, diarrhea, melena, gross hematochezia, or any food intolerance, including fatty foods, etc. with last normal bowel movement about 2 days ago, which is normal for the patient. The patient also denies any recent fever, cough, wheezing, dyspnea, etc.. He denies any pain or discomfort. No apparent history of seizure activity, urine/stool incontinence, etc. with only very limited history obtained from the staff at [facility] prior to transfer. Onset: Today, Unknown/Unsure Duration: Improving Location: Reports: Other (No pain) Severity: Mild (Dysarthria?) Improves with: Reports: Other (Time) Worsens with: Reports: None Context: Reports: Other (As above). Denies: Sick Contact, Trauma Associated Symptoms: Reports: Confusion (Stable baseline), Rash (Old abrasions on his anterior tibial regions bilaterally). 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: Reports: Other (see below) (Accu-Chek as above) - Related Data Allergies Allergy/AdvReac Type Severity Reaction Status Date / Time No Known Allergies Allergy Verified 02/01/21 16:09 Home Meds: Home Meds Gabapentin [Neurontin] 600 mg PO BID@06/28/18 [History] Oxybutynin Chloride 5 mg PO DAILY 06/28/18 [History] Cholecalciferol (Vitamin D3) [Vitamin D3] 2,000 unit PO DAILY 03/03/20 [History] Dulaglutide [Trulicity] 1.5 mg PO Q7D 03/03/20 [History] Memantine [Namenda] 10 mg PO BID 03/03/20 [History] Non-Formulary Medication [NF Drug] 70 unit SUBCUT BEDTIME 03/03/20 [History] Acetaminophen 500 mg PO Q6HR PRN 04/02/20 [History] Aspirin 81 mg PO DAILY 04/02/20 [History] Insulin Regular, Human [NovoLIN R] 30 units SUBCUT ACDINNER 04/02/20 [History] Insulin Regular, Human [NovoLIN R] 50 units SUBCUT ACBREAKFAST 04/02/20 [History] Multivitamin [Multivitamins] 1 each PO DAILY 04/02/20 [History] [place]-3 Fatty Acids [[place]-3] 100 mg PO DAILY 04/02/20 [History] Sennosides/Docusate Sodium [Senna-S] 1 each PO DAILY 04/02/20 [History] Magnesium Oxide [Magnesium] 400 mg PO DAILY #90 tablet 04/04/20 [Rx] amLODIPine [Norvasc] 5 mg PO QPM #30 tablet 04/04/20 [Rx] lisinopriL [Prinivil] 20 mg PO DAILY #30 tablet 04/04/20 [Rx] metFORMIN [Glucophage] 500 mg PO BIDMEALS #60 tablet 04/04/20 [Rx] Dapagliflozin Propanediol [Farxiga] 5 mg PO DAILY 02/01/21 [History] Docusate Sodium/Sennosides [Senokot-S] 1 units PO DAILY 02/01/21 [History] Donepezil HCl [Aricept] 10 mg PO BEDTIME 02/01/21 [History] Famotidine 20 mg PO DAILY 02/01/21 [History] Furosemide 20 mg PO DAILY 02/01/21 [History] atorvaSTATin [Lipitor] 10 mg PO BEDTIME 02/01/21 [History] icosapent ethyL [Icosapent Ethyl] 1 gm PO BID 02/01/21 [History] Past Medical History HEENT History: Reports: Allergic Rhinitis, Hard of Hearing, Impaired Vision, Other (See Below). Denies: Cataract, Glaucoma, Macular Degeneration, Otitis Media, Retinal Detachment Other HEENT History: Bilateral presbycusis with current hearing aid therapy. Patient wears reading glasses. Cardiovascular History: Reports: Arrhythmia, Cardiomyopathy, Heart Failure, High Cholesterol, Hypertension, Other (See Below). Denies: Afib, Aneurysm, Blood Clots/VTE/DVT, CAD, Heart Murmur, PTCA, PVD, Syncope Other Cardiovascular History: PVCs with short nonsymptomatic run of ventricular tachycardia on 02/01/2021 with negative work-up at [facility] at that time. First-degree AV block. Dyslipidemia. Respiratory History: Reports: Bronchitis, Recurrent, COPD, Intubation, Previous, Sleep Apnea, Other (See Below). Denies: Asthma, PE, Pneumonia, Recurrent, Pneumothorax, Pulmonary Fibrosis, TB Other Respiratory History: Patient has been compliant with his CPAP. Gastrointestinal History: Reports: Chronic Constipation, Colon Polyp, GERD. Denies: Bowel Obstruction, Celiac Disease, Cholelithiasis, Diverticulosis, Fecal Incontinence, GI Bleed, Hepatitis, Hiatal Hernia, Inflammatory Bowel Disease, Irritable Bowel Syndrome, Jaundice, Pancreatitis, PUD, Other (See Below) Other Gastrointestinal History: History of LFTs elevation. History of benign colonic polyps in the cecum and rectal areas. Genitourinary History: Reports: BPH, Chronic Renal Insuffiency, Diabetic Nephropathy, Prostate Disorder. Denies: Acute Renal Failure, Renal Calculus, Retention, Urinary, STD, Urinary Incontinence, UTI, Recurrent Musculoskeletal History: Reports: Arthritis, Back Pain, Chronic, Gout, Neck Pain, Chronic, Osteoarthritis, Other (See Below). Denies: Fracture, RA, SLE Other Musculoskeletal History: CK elevation. Neurological History: Reports: Alzheimers Disease, Neuropathy, Diabetic, Neuropathy, Peripheral, Vertigo, Other (See Below). Denies: Cerebral Aneurysms, CVA, Headaches, Chronic, Migraines, MS, Parkinson's, Seizure Other Neuro History: Recurrent falls with current cane use. Mild to moderate cerebral atrophy by MRI with borderline/mild organic brain syndrome. 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 Psychiatric History: Reports: Dementia. Denies: Abuse, Victim of, ADD, ADHD, Addiction, Alzheimers Disease, Anxiety, Depression, Psych Hospitalization(s), PTSD, Suicide Attempt, Suicidal Ideation Endocrine/Metabolic History: Reports: Diabetes, Type II, Hypomagnesemia, Obesity/BMI 30+, Other (See Below) Other Endocrine/Metabolic History: Chronic hyponatremia. Hypoalbuminemia. Hematologic History: Reports: Anemia. Denies: Iron Deficiency Immunologic History: Reports: None. Denies: AIDS, HIV, SLE Oncologic (Cancer) History: Reports: None. Denies: Basal Cell Carcinoma, Cervix, Colon, Leukemia, Lymphoma, Malignant Melanoma, Non-Hodgkin's Lymphoma, Prostate, Squamous Cell Carcinoma Dermatologic History: Reports: None. Denies: Eczema, Psoriasis, Venous Stasis Dermatitis - Infectious Disease History Infectious Disease History: Reports: Chicken Pox, Measles, Mumps. Denies: C- Difficile, Meningitis, Mononucleosis, MRSA, Novel Coronavirus, Pertussis (Whooping Cough), Rheumatic Fever, Rubella, Scarlet Fever, Shingles, TB, VRE - Past Surgical History Head Surgeries/Procedures: Reports: None HEENT Surgical History: Reports: None. Denies: Adenoidectomy, Cataract Surgery, Eye Surgery, Laser Surgery, LASIK, Myringotomy w Tube(s), Naso-Sinus Surgery, Oral Surgery, Tonsillectomy Cardiovascular Surgical History: Reports: None. Denies: Varicose Respiratory Surgical History: Reports: None. Denies: Thoracentesis GI Surgical History: Reports: Appendectomy, Colonoscopy, Polypectomy, Other (See Below). Denies: Cholecystectomy, EGD, Hernia, Abdominal, Hernia, Inguinal, Hernia Repair/Other Other GI Surgeries/Procedures: Appendectomy at age 1. Last colonoscopy on 06/29/2018 was normal with polypectomies x 2 at time of colonoscopy on 11/29/2014. Male Surgical History: Reports: Circumcision, Other (See Below). Denies: TURP-Transurethral Resection of Prostate, Vasectomy Other Male Surgeries/Procedures: Circumcision as an infant. Endocrine Surgical History: Reports: None. Denies: Thyroid Biopsy Neurological Surgical History: Reports: None. Denies: C-Spine, Discectomy, Laminectomy, Lumbar Spine, Spinal Fusion, Thoracic Spine, Vertebroplasty Musculoskeletal Surgical History: Reports: None, Carpal Tunnel, Hip Replacement, Joint Replacement, Other (See Below). Denies: Ganglion Cyst Other Musculoskeletal Surgeries/Procedures:: Right knee total knee arthroplasty in October 2011 with redo procedure on 11/12/2013 complicated by postoperative bleed and subsequent infection with right knee I&D and drain placement on 12/11/2013. Note additional previous arthroplasty revisions/debridements of the right knee on 11/12/2013, and 11/15/2013. Left hip TEP on 05/11/2016. Bilateral carpal tunnel release in 1996 with subsequent left-sided repeat procedure on 03/29/2014? Oncologic Surgical History: Reports: None Dermatological Surgical History: Reports: Skin Biopsy, Other (See Below) Other Dermatological Surgeries/Procedures: Shave biopsy of benign lesion on 05/16/2017. - Past Imaging History Past Imaging History: Reports: Bone Scan (Knees bilaterally on 10/12/2013.), Cardiac Echo (02/02/2021 with ejection fraction of 65%.), CAT Scan (Head on 10/30/2020), MRA (MRA of the brain on 03/03/2020 with results as above.), MRI (MRI of the brain on 03/10/2020 and 01/02/2019. MRI of the left hip on 12/01/2015 and the right hip on 01/13/2011.), Stress Testing (Negative Lexiscan on 02/02/2021. Previous Cardiolite stress test on 10/11/2013.), Ultrasound (Bilateral renal on 01/15/2021.), Other (See Below) (EMG and nerve conduction studies on 07/31/2013.) Social & Family History - Family History HEENT: Reports: None. Denies: Glaucoma, Macular Degeneration, Retinal Detachment Cardiac: Reports: None. Denies: Afib, Arrhythmia, Blood Clots/VTE/DVT, CAD, Cardiomyopathy, Heart Failure, High Cholesterol, Hypertension, NE, PVD/COD, Syncope Respiratory: Reports: COPD, Other (See Below). Denies: Asthma, PE, Pneumothorax, Sleep Apnea Other Respiratory Family Hisory: Father with fatal COPD at age 55 with history of tobacco use. GI: Reports: None. Denies: Celiac Disease, Cholelithiasis, Colon Polyps, GERD, GI bleed, Inflammatory Bowel Disease, Irritable Bowel Syndrome : Reports: None. Denies: Renal Calculus, Renal Disease/Insufficiency OBGYN: Reports: None. Denies: Endometriosis, Recurrent Spontaneous Musculoskeletal: Reports: None. Denies: Arthritis, Gout, Osteoarthritis, RA, SLE Neurological: Reports: None. Denies: Alzheimers Disease, Cerebral Aneurysms, CVA, Dementia, Migraines, MS, Parkinson's, Seizure, TIA Psychiatric: Reports: None. Denies: Abuse, Victim of, ADD, ADHD, Anxiety, Depression, Psych Hospitalization(s), Psychosis, Suicide Attempt Endocrine/Metabolic: Reports: None. Denies: Diabetes, Type I, Diabetes, type II, Diabetes Mellitus, Type 3c, Hypothyroidism, IDDM Hematologic: Reports: None. Denies: SLE Immunologic: Reports: None. Denies: AIDS, HIV, SLE Dermatologic: Reports: None. Denies: Eczema, Psoriasis Oncologic: Reports: None. Denies: Colon, Esophageal, Hodgkin's Lymphoma, Leukemia, Liver, Lung, Lymphoma, Pancreatic, Prostate, Skin - Tobacco Use Tobacco Use Status *Q: Never Tobacco User Tobacco Use Within Last Twelve Months: No Used Tobacco, but Quit: No Smoking Cessation Information Provided To Patient: No Second Hand Smoke Exposure: No Second Hand Smoke Education Provided: No - Caffeine Use Caffeine Use: Reports: Coffee (6 cups/day). Denies: Energy Drinks, Soda, Tea - Alcohol Use Alcohol Use History: Yes Days Per Week of Alcohol Use: 2 Number of Drinks Per Day: 2 Number of Drinks Per Day Comment: Usually beer. No previous DWIs, problems with alcohol abuse, etc. Total Drinks Per Week: 4 Alcohol Use in Last Twelve Months: Yes - Recreational Drug Use Recreational Drug Use: No Drug Use in Last 12 Months: No Recreational Drug Type: Denies: Amphetamines (Speed), Cocaine, Heroin, Inhalants (Glues, Solvents, Aerosols), LSD (Acid), Marijuana/Hashish, Methamphetamine, Morphine, Oxycodone - Living Situation & Occupation Living situation: Reports: (2014. 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 ED EXAM, NEURO - Physical Exam Exam: See Below (Hav) Exam Limited By: No Limitations General Appearance: Alert, WD/WN, No Apparent Distress Eye Exam: Bilateral Eye: EOMI, Normal Fundi, Normal Inspection (No vertigo or nystagmus), PERRL Ears: No: Hearing Loss (Moderate to severe bilateral presbycusis with medical therapy when hearing aids are put back in bilaterally) Nose: Normal Inspection, Normal Mucosa, No Blood Throat/Mouth: Normal Inspection, Normal Lips, Normal Teeth, Normal Gums, Normal Oropharynx, Normal Voice, No Airway Compromise, Other (No tongue injury). No: Dysphagia, Perioral Cyanosis Head Exam: Atraumatic, Normocephalic. No: Facial Swelling, Facial Tenderness, Sinus Tenderness Neck: Supple, Non-Tender, Full Range of Motion, Carotid Bruit (Mild bilateral carotid bruits). No: Lymphadenopathy (L), Lymphadenopathy (R), Thyromegaly Respiratory/Chest: No Respiratory Distress, No Accessory Muscle Use, Chest Non- Tender, Rales (Mild bilateral baseline). No: Pleural Rub, Retractions Cardiovascular: Regular Rate, Rhythm, No Edema (Dependent edema as below), No Gallop, No JVD, No Murmur, No Rub. No: Gallop/S3, Gallop/S4, Extra Beats (None at time of exam), Friction Rub GI/Abdominal: Normal Bowel Sounds, Soft, Non-Tender, No Organomegaly, No Distention, No Abnormal Bruit, No Mass, Pelvis Stable, Other (Obese). No: Guarding (Male) Exam: Deferred Rectal (Males) Exam: Deferred Neurological: Alert, Normal Mood/Affect, Normal Dorsiflexion, CN II-XII Intact, Normal Plantar Flexion, Normal Gait, Normal Reflexes (Negative Babinski's, finger to nose, and pronator rotation tests. No evidence of facial paresis, tongue deviation, orthostasis, etc.. Excellent reverse thought processes.). No: No Motor/Sensory Deficits (No dysarthria noted), Oriented x 3 (Not oriented to date, including month and day) Back Exam: Normal Inspection, Full Range of Motion. No: CVA Tenderness (L), CVA Tenderness (R), Muscle Spasm Extremities: Normal Range of Motion, Non-Tender, Normal Capillary Refill, Pedal Edema (Trace bilateral pedal/pretibial edema), Other (Multiple superficial abrasions on the distal aspects of his anterior tibial regions bilaterally with no local signs of infection lesions ranging between 1.5 and 2 cm in diameter). No: Evelin's Sign Psychiatric: Normal Affect, Normal Mood Skin Exam: No Rash, Wound/Incision (As above). No: Diaphoretic, Ecchymosis, Petechiae #1 Interpretation EKG Date: 02/05/21 Time: 17:31 Rhythm: NSR Rate (Beats/Min): 80 [place]: Normal (Left) P-Wave: Present (Mild diffuse biphasic T waves) QRS: Normal (0.08 seconds) ST-T: Normal (New T wave inversion lead III) QT: Normal [place]/PQ Interval: 0.18 seconds with stable mild poor R wave progression in the anterior leads Comparison: Change From Previous EKG (As above since 02/01/2021.) EKG Interpretation Comments: 1. No acute ischemic changes 2. Left atrial enlargement Course - Vital Signs Last Recorded V/S: Last Vital Signs Temp 36.1 C 02/05/21 20:25 Pulse 80 02/05/21 20:25 Resp 25 H 02/05/21 20:25 BP 165/81 H 02/05/21 20:25 Pulse Ox 98 02/05/21 20:25 Vital Signs - 24 hr 02/05/21 02/05/21 02/05/21 17:16 17:35 17:50 Temperature [ 36.7 C Temporal] Pulse, 78 78 81 Peripheral [ Left Pulse Oximetry] Respiratory 16 16 16 Rate Blood Pressure 141/68 H 139/76 133/75 [Left Upper Arm ] O2 Sat by Pulse 95 98 98 Oximetry 02/05/21 02/05/21 02/05/21 18:05 18:20 18:35 Temperature [ Temporal] Pulse, 79 90 89 Peripheral [ Left Pulse Oximetry] Respiratory 16 16 16 Rate Blood Pressure 148/68 H 153/72 H 150/70 H [Left Upper Arm ] O2 Sat by Pulse 96 97 98 Oximetry 02/05/21 02/05/21 02/05/21 18:50 19:40 20:25 Temperature [ 36.3 C 36.1 C Temporal] Pulse, 88 81 80 Peripheral [ Left Pulse Oximetry] Respiratory 16 26 H 25 H Rate Blood Pressure 143/65 H 162/82 H 165/81 H [Left Upper Arm ] O2 Sat by Pulse 98 97 98 Oximetry - Orders/Labs/Meds Orders: Active Orders 24 hr Category Date Time Status Ang Head [CT] Stat Exams 02/05/21 18:29 Ordered Ang Neck [CT] Stat Exams 02/05/21 18:29 Ordered Chest 1V Frontal [CR] Stat Exams 02/05/21 17:07 Taken Chest PE [Ang Chest] [CT] Stat Exams 02/05/21 18:04 Ordered Head wo Cont [CT] Stat Exams 02/05/21 17:07 Taken CULTURE URINE [RM] Routine Lab 02/05/21 18:18 Received PROLACTIN [REF] Stat Lab 02/05/21 17:15 Received Obtain Past Medical Record [OM.PC] Stat Oth 02/05/21 17:07 Active Peripheral IV Insertion Adult [OM.PC] Stat Oth 02/05/21 17:07 Ordered Resuscitation Status Stat Resus Stat 02/05/21 17:07 Ordered Labs: Laboratory Tests 02/05/21 02/05/21 02/05/21 Range/Units 17:15 17:15 17:15 WBC 9.6 (4.0-10.2) K/uL RBC 3.95 L (4.33-5.41) M/uL Hgb 11.6 L (13.1-16.8) g/dL Hct 35.1 L (39.0-49.0) % MCV 88.9 (84.0-98.0) fL MCH 29.4 (28.2-33.3) pg MCHC 33.0 (31.7-36.0) g/dL RDW 13.6 (11.2-14.1) % Plt Count 284 (150-350) K/uL Neut % (Auto) 74.8 (45.0-80.0) % Lymph % (Auto) 15.7 (10.0-50.0) % [place] % (Auto) 7.9 (2.0-14.0) % Eos % (Auto) 1.3 (0.0-5.0) % Baso % (Auto) 0.3 (0.0-2.0) % Neut # (Auto) 7.16 H (1.40-7.00) K/uL Lymph # (Auto) 1.50 (0.50-3.50) K/uL [place] # (Auto) 0.76 (0.00-1.00) K/uL Eos # (Auto) 0.12 (0.00-0.50) K/uL Baso # (Auto) 0.03 (0.00-0.20) K/uL PT 10.6 (9.5-12.0) SEC INR 1.1 APTT 26.2 (24.5-32.8) SEC D-Dimer, Quantitative 2820 H (0-400) ng/mL Sodium (136-145) mmol/L Potassium (3.5-5.1) mmol/L Chloride (98-107) mmol/L Carbon Dioxide (21.0-32.0) mmol/L BUN (7-18) mg/dL Creatinine (0.51-1.17) mg/dL Est Cr Clr Drug Dosing Estimated GFR (MDRD) mL/min Glucose (70-99) mg/dL Lactic Acid (0.4-2.0) mmol/L Uric Acid (2.6-7.2) mg/dL Calcium (8.5-10.1) mg/dL Magnesium (1.8-2.4) mg/dL Total Bilirubin (0.2-1.0) mg/dL AST (15-37) U/L ALT (12-78) U/L Alkaline Phosphatase (46-116) IU/L Troponin I (0.000-0.056) ng/mL NT-Pro-B Natriuret Pep (0-125) pg/mL Total Protein (6.4-8.2) g/dL Albumin (3.4-5.0) g/dL TSH, Ultra Sensitive (0.358-3.740) mIU/mL Specimen Type Urine Color Urine Appearance Urine pH (5.0-9.0) Ur Specific [place] (1.005-1.030) Urine Protein (NEGATIVE) mg/dL Urine Glucose (UA) (NEGATIVE) mg/dL Urine Ketones (NEGATIVE) mg/dL Urine Occult Blood (NEGATIVE) Urine Nitrite (NEGATIVE) Urine Bilirubin (NEGATIVE) Urine Urobilinogen (0.2-1.0) E.U./dL Ur Leukocyte Esterase (NEGATIVE) Urine RBC /HPF Urine WBC /HPF Ur Epithelial Cells /LPF Urine Bacteria (NONE TO FEW) /HPF Urine Mucus (NEGATIVE) /LPF Urine Opiates Screen (NEGATIVE) Ur Buprenorphine Scrn (NEGATIVE) Ur Oxycodone Screen (NEGATIVE) Ur EDDP (Meth Metab) (NEGATIVE) Ur Barbiturates Screen (NEGATIVE) Ur Tricyclics Screen (NEGATIVE) Ur Amphetamine Screen (NEGATIVE) U Methamphetamines Scrn (NEGATIVE) Urine MDMA Screen (NEGATIVE) U Benzodiazepines Scrn (NEGATIVE) U Cocaine Metab Screen (NEGATIVE) U Marijuana (THC) Screen (NEGATIVE) Ethyl Alcohol (0.000-0.080) g/dL SARS-CoV-2 RNA (FLOYD) (NEGATIVE) 02/05/21 02/05/21 02/05/21 Range/Units 17:15 17:15 17:30 WBC (4.0-10.2) K/uL RBC (4.33-5.41) M/uL Hgb (13.1-16.8) g/dL Hct (39.0-49.0) % MCV (84.0-98.0) fL MCH (28.2-33.3) pg MCHC (31.7-36.0) g/dL RDW (11.2-14.1) % Plt Count (150-350) K/uL Neut % (Auto) (45.0-80.0) % Lymph % (Auto) (10.0-50.0) % [place] % (Auto) (2.0-14.0) % Eos % (Auto) (0.0-5.0) % Baso % (Auto) (0.0-2.0) % Neut # (Auto) (1.40-7.00) K/uL Lymph # (Auto) (0.50-3.50) K/uL [place] # (Auto) (0.00-1.00) K/uL Eos # (Auto) (0.00-0.50) K/uL Baso # (Auto) (0.00-0.20) K/uL PT (9.5-12.0) SEC INR APTT (24.5-32.8) SEC D-Dimer, Quantitative (0-400) ng/mL Sodium 138 (136-145) mmol/L Potassium 4.1 (3.5-5.1) mmol/L Chloride 101 (98-107) mmol/L Carbon Dioxide 27.3 (21.0-32.0) mmol/L BUN 28 H (7-18) mg/dL Creatinine 1.79 H (0.51-1.17) mg/dL Est Cr Clr Drug Dosing TNP Estimated GFR (MDRD) 38 mL/min Glucose 186 H (70-99) mg/dL Lactic Acid 2.0 (0.4-2.0) mmol/L Uric Acid 6.6 (2.6-7.2) mg/dL Calcium 8.9 (8.5-10.1) mg/dL Magnesium 2.2 (1.8-2.4) mg/dL Total Bilirubin 0.5 (0.2-1.0) mg/dL AST 27 (15-37) U/L ALT 35 (12-78) U/L Alkaline Phosphatase 58 (46-116) IU/L Troponin I 0.010 (0.000-0.056) ng/mL NT-Pro-B Natriuret Pep 185 H (0-125) pg/mL Total Protein 6.8 (6.4-8.2) g/dL Albumin 2.5 L (3.4-5.0) g/dL TSH, Ultra Sensitive 1.009 (0.358-3.740) mIU/mL Specimen Type Urine Color Urine Appearance Urine pH (5.0-9.0) Ur Specific [place] (1.005-1.030) Urine Protein (NEGATIVE) mg/dL Urine Glucose (UA) (NEGATIVE) mg/dL Urine Ketones (NEGATIVE) mg/dL Urine Occult Blood (NEGATIVE) Urine Nitrite (NEGATIVE) Urine Bilirubin (NEGATIVE) Urine Urobilinogen (0.2-1.0) E.U./dL Ur Leukocyte Esterase (NEGATIVE) Urine RBC /HPF Urine WBC /HPF Ur Epithelial Cells /LPF Urine Bacteria (NONE TO FEW) /HPF Urine Mucus (NEGATIVE) /LPF Urine Opiates Screen (NEGATIVE) Ur Buprenorphine Scrn (NEGATIVE) Ur Oxycodone Screen (NEGATIVE) Ur EDDP (Meth Metab) (NEGATIVE) Ur Barbiturates Screen (NEGATIVE) Ur Tricyclics Screen (NEGATIVE) Ur Amphetamine Screen (NEGATIVE) U Methamphetamines Scrn (NEGATIVE) Urine MDMA Screen (NEGATIVE) U Benzodiazepines Scrn (NEGATIVE) U Cocaine Metab Screen (NEGATIVE) U Marijuana (THC) Screen (NEGATIVE) Ethyl Alcohol 0.000 (0.000-0.080) g/dL SARS-CoV-2 RNA ([place]D) Negative (NEGATIVE) 02/05/21 02/05/21 Range/Units 18:18 18:18 WBC (4.0-10.2) K/uL RBC (4.33-5.41) M/uL Hgb (13.1-16.8) g/dL Hct (39.0-49.0) % MCV (84.0-98.0) fL MCH (28.2-33.3) pg MCHC (31.7-36.0) g/dL RDW (11.2-14.1) % Plt Count (150-350) K/uL Neut % (Auto) (45.0-80.0) % Lymph % (Auto) (10.0-50.0) % [place] % (Auto) (2.0-14.0) % Eos % (Auto) (0.0-5.0) % Baso % (Auto) (0.0-2.0) % Neut # (Auto) (1.40-7.00) K/uL Lymph # (Auto) (0.50-3.50) K/uL [place] # (Auto) (0.00-1.00) K/uL Eos # (Auto) (0.00-0.50) K/uL Baso # (Auto) (0.00-0.20) K/uL PT (9.5-12.0) SEC INR APTT (24.5-32.8) SEC D-Dimer, Quantitative (0-400) ng/mL Sodium (136-145) mmol/L Potassium (3.5-5.1) mmol/L Chloride (98-107) mmol/L Carbon Dioxide (21.0-32.0) mmol/L BUN (7-18) mg/dL Creatinine (0.51-1.17) mg/dL Est Cr Clr Drug Dosing Estimated GFR (MDRD) mL/min Glucose (70-99) mg/dL Lactic Acid (0.4-2.0) mmol/L Uric Acid (2.6-7.2) mg/dL Calcium (8.5-10.1) mg/dL Magnesium (1.8-2.4) mg/dL Total Bilirubin (0.2-1.0) mg/dL AST (15-37) U/L ALT (12-78) U/L Alkaline Phosphatase (46-116) IU/L Troponin I (0.000-0.056) ng/mL NT-Pro-B Natriuret Pep (0-125) pg/mL Total Protein (6.4-8.2) g/dL Albumin (3.4-5.0) g/dL TSH, Ultra Sensitive (0.358-3.740) mIU/mL Specimen Type Urincc Urine Color Yellow Urine Appearance Clear Urine pH 5.5 (5.0-9.0) Ur Specific [place] 1.020 (1.005-1.030) Urine Protein >=300 H (NEGATIVE) mg/dL Urine Glucose (UA) 500 H (NEGATIVE) mg/dL Urine Ketones Negative (NEGATIVE) mg/dL Urine Occult Blood Negative (NEGATIVE) Urine Nitrite Negative (NEGATIVE) Urine Bilirubin Negative (NEGATIVE) Urine Urobilinogen 2.0 H (0.2-1.0) E.U./dL Ur Leukocyte Esterase Negative (NEGATIVE) Urine RBC 0-5 /HPF Urine WBC 0-5 /HPF Ur Epithelial Cells Few /LPF Urine Bacteria Few (NONE TO FEW) /HPF Urine Mucus Few H (NEGATIVE) /LPF Urine Opiates Screen Negative (NEGATIVE) Ur Buprenorphine Scrn Negative (NEGATIVE) Ur Oxycodone Screen Negative (NEGATIVE) Ur EDDP (Meth Metab) Negative (NEGATIVE) Ur Barbiturates Screen Negative (NEGATIVE) Ur Tricyclics Screen Negative (NEGATIVE) Ur Amphetamine Screen Negative (NEGATIVE) U Methamphetamines Scrn Negative (NEGATIVE) Urine MDMA Screen Negative (NEGATIVE) U Benzodiazepines Scrn Negative (NEGATIVE) U Cocaine Metab Screen Negative (NEGATIVE) U Marijuana (THC) Screen Negative (NEGATIVE) Ethyl Alcohol (0.000-0.080) g/dL SARS-CoV-2 RNA (FLOYD) (NEGATIVE) Urine specimen sent for culture and sensitivity. Prolactin level drawn with results pending. Meds: Medications Discontinued Medications Generic Name Dose Route Start Last Admin Trade Name Freq PRN Reason Stop Dose Admin Al Hydroxide/Mg Hydroxide 30 ml 02/05/21 19:47 02/05/21 19:55 Gi Cocktail Oral Solution 30 Ml PO 02/05/21 19:48 30 ml ONETIME ONE Administration Famotidine 40 mg 02/05/21 17:07 02/05/21 17:36 Famotidine 20 Mg/2 Ml Sdv IVPUSH 02/05/21 17:08 40 mg ONETIME ONE Administration Iopamidol Confirm 02/05/21 18:40 Iopamidol 755 Mg/Ml 100 Ml Bottle Administered 02/05/21 18:41 Dose 100 ml .ROUTE .STK-MED ONE Sodium Chloride 10 ml 02/05/21 17:07 02/05/21 17:36 Sodium Chloride 0.9% 10 Ml Syringe FLUSH 10 ml ASDIRECTED PRN Administration Keep Vein Open - Radiology Interpretation Free Text/Narrative:: secured entrance monitor shows normal sinus rhythm in the 70s to 80s with only very occasional PVCs noted Chest x-ray, portable, shows stable moderate cardiomegaly and probable mild to moderate centralized CHF and/or pulmonary hypertension with moderate COPD changes but no evidence of pulmonary infiltrates, pneumothorax, etc. Moderately elevated right hemidiaphragm. Telephone consultation at 5:55 PM with the radiology department at [facility]. Preliminary verbal report of noncontrast CT scan of the head shows no evidence of acute CVA, etc. with stable generalized cerebral atrophy and cyst in the anterior aspect of the third ventricle. CT Results Date: 02/05/21 CT Results Time: 17:55 Departure - Departure Time of Disposition: 20:30 Disposition: DC/Tfer to [facility] 02 Clinical Impression: Renal insufficiency, IDDM (insulin dependent diabetes mellitus), PVCs (premature ventricular contractions), Peptic reflux disease, Confusion, D-dimer, elevated COPD (chronic obstructive pulmonary disease) Qualifiers: COPD type: emphysema Emphysema type: panlobular Qualified Code(s): J43.1 - Panlobular emphysema CHF (congestive heart failure) Qualifiers: Heart failure type: systolic Heart failure chronicity: acute on chronic Qualified Code(s): I50.23 - Acute on chronic systolic (congestive) heart failure - Discharge Information *PRESCRIPTION DRUG MONITORING PROGRAM REVIEWED*: Not Applicable *COPY OF PRESCRIPTION DRUG MONITORING REPORT IN PATIENT MARLENE: Not Applicable Referrals: Jackeline Steele NP [Primary Care Provider] - Forms: ED Department Discharge, Interfacility Transfer FISH Sepsis Event Note (ED) - Focused Exam Vital Signs: Vital Signs Temp Pulse Resp BP Pulse Ox 02/05/21 20:25 36.1 C 80 25 H 165/81 H 98 02/05/21 19:40 36.3 C 81 26 H 162/82 H 97 02/05/21 18:50 88 16 143/65 H 98 02/05/21 18:35 89 16 150/70 H 98 02/05/21 18:20 90 16 153/72 H 97 02/05/21 18:05 79 16 148/68 H 96 02/05/21 17:50 81 16 133/75 98 02/05/21 17:35 78 16 139/76 98 02/05/21 17:16 36.7 C 78 16 141/68 H 95 - Problem List & Annotations (1) Confusion SNOMED Code(s): 251041487 Code(s): R41.0 - DISORIENTATION, UNSPECIFIED Status: Acute Priority: High Annotation/Comment:: Telephone consultation at 7:[address] Hagan, ER physician at [facility], who does agree to accept the patient for further evaluation, including probable CTA of the chest to rule out PE and MRI of the brain and neck to rule out a threatening CVA. No further treatment recommendations were given. Subsequent telephone consultation with the patient's sister, Anderson, telephone number [phone], who does agree to drive the patient back home, if the above work-up is negative. Vital signs and clinical exam are stable at time of patient's transfer. Ambulance transfer with spreading machine operator accompaniment. A stroke code was called by me immediately upon patient's arrival to this facility. Known cerebral atrophy and baseline mild organic brain syndrome with new possible brief dysarthria earlier today, although this appears resolved at time of our initial evaluation in the emergency room. Possible TIA as above. Telephone consultations with the patient's sister, Anderson, shortly after patient's arrival to this facility indicates possible increased confusion since patient's hospitalization at [facility] in [place] on 02/01/2021. Patient is apparently hoarding groceries, more confused, and possibly having some visual hallucinations. No evidence of seizure activity, postictal sedation, etc. with prolactin level drawn with results pending. UA, COVID-19 rapid test, and alcohol levels are normal with urine specimen set up for culture and sensitivity. (2) D-dimer, elevated SNOMED Code(s): 195041115 Code(s): R79.89 - OTHER SPECIFIED ABNORMAL FINDINGS OF BLOOD CHEMISTRY Status: Acute Priority: High Onset Date: 02/05/21 Annotation/Comment:: No clinical evidence of DVT or PE. Note that shortly after completion of the above CT of the chest without contrast our CT scanner contrast device broke necessitating patient transfer to [place] as above. Venous Doppler studies of the lower extremities may be advisable depending on his clinical course possibly in this facility on 02/09/2029 or earlier by accepting providers. (3) CHF (congestive heart failure) SNOMED Code(s): 96175965 Code(s): I50.9 - HEART FAILURE, UNSPECIFIED Status: Chronic Priority: Medium Annotation/Comment:: No chest pain or anginal type symptoms either prior to arrival or during the majority of his ER care. Nonspecific retrosternal chest discomfort at 7:40 PM this evening with green laser given. Only mild CHF by clinical exam and BNP with nonspecific secondary change of troponin I, which is still normal. Stable chest x-ray findings for CHF and pulmonary hypertension based on our medical records. Continue to observe closely by regular providers with no change in medical therapy for now. Note recent negative work-up for coronary artery disease at [facility] in [place] on 02/02/2021 as above. Qualifiers: Heart failure type: systolic Heart failure chronicity: acute on chronic Qualified Code(s): I50.23 - Acute on chronic systolic (congestive) heart failure (4) PVCs (premature ventricular contractions) SNOMED Code(s): 08459804 Code(s): I49.3 - VENTRICULAR PREMATURE DEPOLARIZATION Status: Chronic Priority: Medium Onset Date: 02/05/21 Annotation/Comment:: No return of borderline short runs of V. tach as on 02/01/2021. Nonsymptomatic. And very occasional at this time. Note negative recent work-up at [facility] in [place]. Observe for now. (5) COPD (chronic obstructive pulmonary disease) SNOMED Code(s): 06107808 Code(s): J44.9 - CHRONIC OBSTRUCTIVE PULMONARY DISEASE, UNSPECIFIED Status: Chronic Priority: Medium Annotation/Comment:: No recent history of fever or bronchitic type symptoms. Note additional history of sleep apnea with patient compliant with his CPAP. Qualifiers: COPD type: emphysema Emphysema type: panlobular Qualified Code(s): J43.1 - Panlobular emphysema (6) IDDM (insulin dependent diabetes mellitus) SNOMED Code(s): 16972463 Code(s): UPM1587 - Status: Chronic Priority: High Annotation/Comment:: Note clinic visit earlier today. Overall normal random glucose by spreading machine operator prior to patient's transfer as above. Continue to observe closely by his regular providers (7) Peptic reflux disease SNOMED Code(s): 919647876 Code(s): K21.9 - GASTRO-ESOPHAGEAL REFLUX DISEASE WITHOUT ESOPHAGITIS Status: Chronic Priority: Medium Annotation/Comment:: Stable by history with stable mild anemia today. High-dose IV Pepcid was given as GI prophylaxis with no current abdominal complaints, etc. Additional green lizard given as above. (8) Renal insufficiency SNOMED Code(s): 730037501, 419512534 Code(s): N28.9 - DISORDER OF KIDNEY AND URETER, UNSPECIFIED Status: Chronic Priority: Medium Annotation/Comment:: Diabetic nephropathy stable recently by review of medical records. Close follow-up by regular provider secondary to IV contrast exposure today recommended. (9) Hypoalbuminemia SNOMED Code(s): 742676563 Code(s): E88.09 - OTH DISORDERS OF PLASMA-PROTEIN METABOLISM, NEC Status: Chronic Priority: Medium Annotation/Comment:: Stable per medical records. Observe for now. - Problem List Review Problem List Initiated/Reviewed/Updated: Yes - My Orders Last 24 Hours: My Active Orders 02/05/21 17:07 Chest 1V Frontal [CR] Stat Head wo Cont [CT] Stat Obtain Past Medical Record [OM.PC] Stat Peripheral IV Insertion Adult [OM.PC] Stat Resuscitation Status Stat 02/05/21 17:15 PROLACTIN [REF] Stat 02/05/21 18:04 Chest PE [Ang Chest] [CT] Stat 02/05/21 18:18 CULTURE URINE [RM] Routine 02/05/21 18:29 Ang Head [CT] Stat Ang Neck [CT] Stat - Assessment/Plan Last 24 Hours: My Active Orders 02/05/21 17:07 Chest 1V Frontal [CR] Stat Head wo Cont [CT] Stat Obtain Past Medical Record [OM.PC] Stat Peripheral IV Insertion Adult [OM.PC] Stat Resuscitation Status Stat 02/05/21 17:15 PROLACTIN [REF] Stat 02/05/21 18:04 Chest PE [Ang Chest] [CT] Stat 02/05/21 18:18 CULTURE URINE [RM] Routine 02/05/21 18:29 Ang Head [CT] Stat Ang Neck [CT] Stat Assessment:: As above Plan: As above. Extensive precautions were given to the patient and his sister, who are in agreement with the treatment plan. Ambulance transfer as above.
[2021-02-05 17:38] LABS: PTT,PARTIAL THROMBOPLSTIN TIME 26.2 SEC (24.5-32.8)
[2021-02-05 17:48] LABS: CHLORIDE,CL 101 mmol/L (98-107); SODIUM,NA 138 mmol/L (136-145)
[2021-02-05 18:31] LABS: BARBITURATE SCREEN,URINE NEGATIVE (NEGATIVE); BENZODIAZEPINES SCREEN,URINE NEGATIVE (NEGATIVE); EDDP,URINE SCREEN NEGATIVE (NEGATIVE); TCA SCREEN,URINE NEGATIVE (NEGATIVE); THC SCREEN,URINE 50 NG/ML NEGATIVE (NEGATIVE)
[2021-02-05] MEDS ORDERED: Iopamidol 755 Mg/ML 100 ML Bottle ONE (18:40)
[2021-02-05] MEDS ORDERED: GI Cocktail Oral Solution 30 ML PO ONE (19:47)
== END 2021-02-05 20:30 ==
LOC: LL.ED 17:05
DX: I49.3 Ventricular premature depolarization (principal); J43.1 Panlobular emphysema; I13.0 Hypertensive heart and chronic kidney disease with heart failure and stage 1 through stage 4 chronic kidney disease, or unspecified chronic kidney disease; E11.22 Type 2 diabetes mellitus with diabetic chronic kidney disease; N18.9 Chronic kidney disease, unspecified; R79.89 Other specified abnormal findings of blood chemistry; I50.23 Acute on chronic systolic (congestive) heart failure; Z79.4 Long term (current) use of insulin; Z79.82 Long term (current) use of aspirin; Z20.822 Contact with and (suspected) exposure to COVID-19
CPT/HCPCS: 70450; 71045; 80053; 80305-QW; 80307; 81001; 83605; 83735; 83880; 84146; 84443; 84484; 84550; 85025; 85379; 85610; 85730; 87086; 93005; 93010; 96374; 99284; 99285-25; A9270-GY; J3490; U0002